=== PATIENT | female | born 1960 | race Caucasian/White ===

== ENCOUNTER 2023-05-12 15:15 | Outpatient (OUT) | payer MEDICARE, OTHER, SELFPAY ==
--- NOTE | 2023-05-12 15:33 | XR_ITS ---
[address] [address] Patient Name: ZAKI MOORE MRN: [id number] date: 1960 Sex: F Assigned Patient Location: [facility] Current Patient Location: [facility] Accession/Order Number: [id number] Exam Date: 05/12/2023 15:25 Report Date: 05/12/2023 16:36 At the request of: YUSRA STANFORD Procedure: XR DEXA axial skeleton EXAMINATION: XR DEXA axial skeleton, 05/12/2023 3:25 PM EDT HISTORY: Post Menopausal, Z78.0 COMPARISON: None. TECHNIQUE: Dual-energy X-ray absorptiometry (DEXA) bone density study performed for the axial skeleton. HISTORY: Post Menopausal, Z78.0 FINDINGS: Bone mineral density AP spine L2-L4 measures 1.142 g/sq cm. T score -0.5. WHO classification: Normal. Lowest bone mineral density left femoral neck measures 0.887 g/sq cm. T score -1.1. WHO classification: Osteopenia IMPRESSION: Borderline osteopenia. Moderate fracture risk Electronically authenticated by: KIRAN SNOWDEN Date: 05/12/2023 16:36
== END 2023-05-12 15:16 | disposition home or self-care (01) ==
LOC: RAD 15:15
DX: Z78.0 Asymptomatic menopausal state (principal); M85.80 Other specified disorders of bone density and structure, unspecified site
CPT/HCPCS: 77080

== ENCOUNTER 2023-08-08 08:53 | Outpatient (OUT) | payer MEDICARE, MEDICAID, SELFPAY ==
[2023-08-08 09:11] LABS: Estimated GFR (African America >60 (>=60); Estimated GFR (Non-African Ame >60 (>=60)
== END 2023-08-08 08:54 | disposition home or self-care (01) ==
LOC: LAB 08:53
PROVIDERS: Visit Provider Psychiatry & Neurology Neurology
DX: R27.0 Ataxia, unspecified (principal)
CPT/HCPCS: 36415; 82565; 84520

== ENCOUNTER 2023-09-08 12:55 | Outpatient (OUT) | payer SELFPAY | END 2023-09-08 12:55 | disposition home or self-care (01) | LOC: MRI 12:55 | PROVIDERS: Visit Provider Psychiatry & Neurology Neurology | DX: Z53.8 Procedure and treatment not carried out for other reasons (principal) ==

== ENCOUNTER 2023-12-07 16:53 | Emergency (ER) | payer MEDICARE, MEDICAID, SELFPAY ==
[2023-12-07 17:16] VITALS: BP 161/94; PULSE 89; RESP 18; TEMP 37.8; O2SAT 99; BMI 25.2
--- OUTSIDE RECORDS SUMMARY | 2023-12-07 17:19 | XMS_ITS | CCD ---
Author Name Unknown Address [address] [place] [address] Organization [facility] Care Team Providers Care Clay Carman Name Role Phone Zenia Wang Unavailable PAY ., DR AVERY Consulting Unavailable PAY ., DR AVERY Attending Unavailable PAY ., DR AVERY Admitting Unavailable MISC, DR BRAY Primary Care Unavailable MISC, DR BRAY Attending Unavailable MISC, DR BRAY Admitting Unavailable MISC, DR BRAY Primary Care Unavailable MISC, DR BRAY Consulting Unavailable ZIEBER, DR TUAN Jordan Consulting Unavailable DO Preet Mcdonnell Attending Provider NON STAFF Primary Care Provider Unavailabl e Preet Mcdonnell Admitting Unavailab Preet Merrill Attending Unavailab le NON STAFF Primary Care Unavailable NON STAFF Primary Care Unavailable Preet Mcdonnell Admitting Unavailab Preet Merrill Attending Unavailab Preet Merrill Admitting Unavailab Preet Merrill Attending Unavailab le NON STAFF Primary Care Unavailable Allergies Allergy Classification Reported Allergen(s) Allergy Type Date of Onset Reaction(s) Facility (3 sources) Latex Drug allergy 3 Blisters, Hives [facility] (1 source) Sertraline Drug Allergy hives [facility] Other (1 source) Bee Sting Drug allergy anaphylaxis [facility] Other (1 source) bee venom Drug allergy (disorder) [facility] Repository (1 source) Ketanserin Drug Allergy [facility] (1 source) Nystatin Drug Allergy [facility] (1 source) Soy protein Drug allergy (disorder) [facility] Repository (3 sources) Sulfonamides (Antibiotic); Translations: [Sulfa (Sulfonamide Antibiotics)] Allergy to substance 3 [facility] (1 source) Latex Drug allergy (disorder) [address] [place] [address] Repository Medications Current Medications Medication Drug Class(es) Dates Sig (Normalized) Sig (Original) aspirin 81 mg chewable tablet (2 sources) Platelet Aggregation Inhibitor, Nonsteroidal Anti-inflammatory Drug Start: 09-21-2023 take 1 tablet by mouth once daily Aspirin (Baby Aspirin) 81 mg Tablet,Chewable Active 81 MG PO Daily September 21, 2023 12:00am benazepril hydrochloride 20 mg / hydroCHLOROthiazide 12.5 mg oral tablet (3 sources) Thiazide Diuretic, Angiotensin Converting Enzyme Inhibitor Start: 09-21-2023 take 1 tablet by mouth once daily in the morning Benazepril-Hydr ochlorothiazide Active 1 TAB PO Every morning September 21, 2023 12:00am Benazepril-hydro CHLOROthiazide 20-12.5 MG Oral for 90 Days Active calcium carbonate 1500 mg / cholecalciferol 200 unt oral tablet (2 sources) Vitamin D Start: 09-21-2023 take 1 tablet by mouth once daily Calcium Carbonate-Vitamin D3 (Calcium + D) 600 mg-5 mcg (200 unit) Tablet Active 1 TAB PO Daily September 21, 2023 12:00am cholecalciferol 0.05 mg oral capsule (2 sources) Vitamin D Start: 09-21-2023 take 50 ug by mouth once daily Cholecalciferol (Vitamin D3) Active 50 MCG PO Daily September 21, 2023 12:00am Echinacea Purpurea Extract (2 sources) Start: 09-21-2023 take 1 tablet by mouth once daily at mealtime Echinacea Purpurea Extract (Echinacea) 125 mg Tablet Active 250 MG PO Daily September 21, 2023 12:00am administer with meals ergocalciferol 1.25 mg oral capsule (1 source) Provitamin D2 Compound Vitamin D (Ergocalciferol) 1.25 MG (95688 UT) Oral for 84 Days Active ibuprofen 200 mg oral tablet (2 sources) Nonsteroidal Anti-inflammatory Drug Start: 09-21-2023 take 400 mg by mouth every six hours Ibuprofen Active 400 MG PO Q6H September 21, 2023 12:00am minocycline 100 mg oral capsule (1 source) Tetracycline-clas s Drug Minocycline HCl 100 MG Oral for 30 Days Active omeprazole 20 mg delayed release oral capsule (3 sources) Proton Pump Inhibitor Start: 09-21-2023 take 20 mg by mouth once daily in the morning Omeprazole Active 20 MG PO Every morning September 21, 2023 12:00am Omeprazole 20 MG Oral for 30 Days Active triamcinolone acetonide 1 mg/ml topical cream (1 source) Corticosteroid Triamcinolone Acetonide 0.1 % External for 7 Days Active vitamin a 2.4 mg oral capsule (2 sources) Vitamin A Start: 09-21-2023 take 2400 ug by mouth once daily Vitamin A Active 2400 MCG PO Daily September 21, 2023 12:00am Problems Active Problems Problem Classification Problem Date Documented Da te Episodic/Chronic Conditions associated with dizziness or vertigo (4 sources) Dizziness and giddiness; Translations: [DIZZINESS AND GIDDINESS] Onset: 01-14-2023 Episodic Fluid and electrolyte disorders (1 source) Dehydration; Translations: [DEHYDRATION] Onset: 01-18-2023 Episodic Headache; including migraine (1 source) Tension-type headache, unspecified, not intractable; Translations: [TENSION-TYP HEADACHE UNS NOT INTRCT] Onset: 01-18-2023 Chronic Other nervous system disorders (1 source) Ataxia, unspecified; Translations: [Ataxia, unspecified] Onset: 10-10-2023 Episodic Other screening for suspected conditions (not mental disorders or infectious disease) (4 sources) Encounter for screening mammogram for malignant neoplasm of breast; Translations: [ENC SCR MAMMO MALIG NEOPLASM BREAST] Onset: 02-14-2023 Episodic Unclassified (1 source) CONTACT W/AND (SUSP) EXPOS COVID-19; Translations: [CONTACT W/AND (SUSP) EXPOS COVID-19] Onset: 01-18-2023 Past or Other Problems Problem Classification Problem Date Documented Da te Episodic/Chronic Nausea and vomiting (1 source) Nausea Onset: 06-09-2022 Resolved: 06-09-2022 Episodic Viral infection (1 source) COVID-19 Onset: 06-09-2022 Resolved: 06-09-2022 Results Test Name Value Interpretation Reference Range Facility Amphetamine Screen Ql (U)Ord ered By: Parviz Garcias on 10-10-2023 Amphetamines Ql (U) Negative Negative [facility] Barbiturates [Presence] in U rine by Screen methodOrdered By: Parviz Garcias on 10-10-2023 Barbiturates Screen Ql (U) Negative Negative [facility] Benzodiazepines Screen Ql (U )Ordered By: Parviz Garcias on 10-10-2023 Benzodiazepines Ql (U) Negative Negative [facility] Benzoylecgonine [Presence] i n Urine by Screen methodOrdered By: Parviz Garcias on 10-10-2023 Benzoylecgonine Screen Ql (U) Negative Negative [facility] Cannabinoids [Presence] in U rine by Screen methodOrdered By: Parviz Garcias on 10-10-2023 Cannabinoids Screen Ql (U) Positive Negative [facility] Comment on above: These are unconfirme d results and should not be used for legal purposes. Drug Cut-Off Concentration: AMPH 1000 ng/mL ADAN 200 ng/mL JAME 200 ng/mL COCM 300 ng/mL OP 300 ng/mL PCP 25 ng/mL THC 20 ng/mL Drug Screen,Urineon 10-10-20 Amphetamine Screen,Urine Negative Normal Negative [facility] Comment on above: Performed By: #### U RDS #### [facility] [address] [place] [address] [place] Barbiturate Screen,Urine Negative Normal Negative [facility] Comment on above: Performed By: #### U RDS #### [facility] [address] [place] [address] [place] Benzodiazepines Screen,Urine Negative Normal Negative [facility] Comment on above: Performed By: #### U RDS #### [facility] [address] [place] [address] [place] Cannabinoid Screen,Urine Positive High Negative [facility] Comment on above: Result Comment: Thes e are unconfirmed results and should not be used for legal purposes. Drug Cut-Off Concentration: AMPH 1000 ng/mL ADAN 200 ng/mL JAME 200 ng/mL COCM 300 ng/mL OP 300 ng/mL PCP 25 ng/mL THC 20 ng/mL PERFORMED BY: [place] [address] PATHOLOGIST HYDRO SPRAYER OPERATOR DAX MOMIN M.D. Performed By: #### U RDS #### [facility] [address] Cocaine Screen,Urine Negative Normal Negative [facility] Comment on above: Performed By: #### U RDS #### [facility] [address] Opiate Screen,Urine Negative Normal Negative [facility] Comment on above: Performed By: #### U RDS #### [facility] [address] Phencyclidine Screen,Urine Negative Normal Negative [facility] Comment on above: Performed By: #### U RDS #### [address] MR head/brain wo/w conon MR head/brain wo/w con [facility] [place] [address] [place] [address] MRI Report Signed Patient: Caridad Garcia MR#: [id number] 18 : 1960 Acct:[id number] Age/Sex: 63 / F ADM Date: 10/10/23 Loc: [place] Room: Type: [facility] Attending Dr: Preet Mcdonnell DO Copies to: Preet Mcdonnell DO Ordering Provider: Preet Mcdonnell DO Date of Service: 10/10/23 MR/MR head/brain wo/w con: R27.0 MRI the Brain with and without contrast TECHNIQUE: Multiplanar T1 and T2-weighted imaging of the brain. 13 cc of ProHance HISTORY: Headache for 2 years. COMPARISON: none VENTRICLES: Unremarkable BRAIN VOLUME: Adequate volume of brain parenchyma identified. BRAIN PARENCHYMAL SIGNAL INTENSITY: Scattered foci of increased T2/FLAIR signal intensity of the brain parenchyma is consistent with chronic small vessel ischemic changes. BLEED: None MASS EFFECT: No mass effect DIFFUSION RESTRICTION: None GRADIENT ECHO PARENCHYMAL SIGNAL LOSS: None MIDBRAIN: The midbrain structures are unremarkable. JAX: Unremarkable MEDULLA: Unremarkable INTERNAL AUDITORY CANALS: Unremarkable SINUSES: Unremarkable ORBITS: Grossly unremarkable MASTOIDS: Unremarkable ENHANCEMENT: No pathologic enhancement. MR/MR head/brain wo/w con IMPRESSION: No acute intracranial process. Findings suggests a mild chronic small vessel ischemic changes. Impression dictated by: Bennie Leahy M.D.10/10/2023 1:10 PM Dictation Location: [place] [address] Transcribed By: ADA 10/10/23 1310 Dictated By: Bennie Leahy DO 10/10/23 1301 Signed By: 10/10/23 1310 Normal [facility] Opiates [Presence] in Urine by Screen methodOrdered By: Parviz Garcias on 10-10-2023 Opiates Screen Ql (U) Negative Negative [facility] Phencyclidine Screen Ql (U)O rdered By: Parviz Garcias on 10-10-2023 Phencyclidine Ql (U) Negative Negative [facility] Creatinine (Bld) [Mass/Vol]O rdered By: Preet Mcdonnell on 09-12-2023 Creatinine [Mass/Vol] 0.7 mg/dL 0.6-1.3 [facility] Comment on above: ER/ESD physician is notified/shown all ISTAT results.Critical values may be confirmed by laboratory testing ifdeemed necessary by ER attending doctor. MG MAMM SCREEN 3D ROXANNE CADon 02-14-2023 MG MAMM SCREEN 3D ROXANNE CAD Patient: CARIDAD GARCIA Exam Date: 02/14/2023 : 1960 Gender:F Ordering : [facility] Admission #: [id number] Family : Order #: [id number] CLICK HERE TO VIEW EXAM RADIOLOGY REPORT PROCEDURE: MAMMOGRAM SCREENING 3D BILATERAL CAD COMPARISON: MG MAMM SCREEN ROXANNE W CAD, 04/25/2020. MG MAMM SCREEN ROXANNE W CAD, 04/13/2019. MG MAMM ROXANNE DIAG W CAD, 06/23/2021. US BREAST LEFT LIMITED, 06/23/2021. INDICATIONS: Screening mammography Calculator Name NCI Breast Cancer Risk Assessment Tool 5 Year Breast Cancer Risk 1.40% Lifetime Breast Cancer Risk 5.80% Personal Breast Cancer No Personal Ovarian Cancer No Treatments None Family Cancers None LOCATION: [facility] BREAST COMPOSITION: Heterogeneously dense,which may obscure small masses. FINDINGS: DIAGNOSTIC CATEGORY 2--BENIGN FINDING: RIGHT BREAST: No significant suspicious finding. Stable, chronic nodule within the anterior lower-outer quadrant. No significant change has occurred. LEFT BREAST: No significant suspicious finding. No significant change has occurred. RECOMMENDATIONS: ROUTINE MAMMOGRAM AND CLINICAL EVALUATION IN 12 MONTHS. PLEASE NOTE: A NORMAL MAMMOGRAM DOES NOT EXCLUDE THE POSSIBILITY OF BREAST CANCER. A CLINICALLY SUSPICIOUS PALPABLE LUMP SHOULD BE BIOPSIED. Dictated by: Tuan Nicole M.D. on 02/15/2023 at 08:07 Approved by: Tuan Nicole M.D. on 02/15/2023 at 08:18 Normal [facility] CBC AUTO DIFFon 01-14-2023 BASO # 0.1 103/ul Normal 0.0-0.1 [facility] Comment on above: Performed By: #### C BC #### [facility] [address] [place] [address] Dr. Cat Cotton Basophils/100 WBC (Bld) 0.7 % Normal 0.2-2.0 [facility] Comment on above: Performed By: #### C BC #### [facility] [address] [place] [address] Dr. Cat Cotton EO # 0.2 103/ul Normal 0.0-0.7 [facility] Comment on above: Performed By: #### C BC #### [facility] [address] [place] [address] Dr. Cat Cotton Eosinophils/100 WBC (Bld) 2.4 % Normal 0.9-7.0 [facility] Comment on above: Performed By: #### C BC #### [facility] [address] [place] [address] Dr. Cat Cotton Erythrocyte distribution width (RBC) [Ratio] 13.3 % Normal 11.0-15.0 [facility] Comment on above: Performed By: #### C BC #### [facility] [address] [place] [address] Dr. Cat Cotton Hematocrit (Bld) [Volume fraction] 40.1 % Normal 36.0-48.0 [facility] Comment on above: Performed By: #### C BC #### [facility] [address] [place] [address] Dr. Cat Cotton Hemoglobin (Bld) [Mass/Vol] 13.8 g/dL Normal 12.0-16.0 [facility] Comment on above: Performed By: #### C BC #### [facility] [address] [place] [address] Dr. Cat Cotton IG # 0.02 10e3/ul Normal 0.00-0.03 [facility] Comment on above: Performed By: #### C BC #### [facility] [address] [place] [address] Dr. Cat Cotton IG % 0.2 % Normal 0.0-0.5 [facility] Comment on above: Performed By: #### C BC #### [facility] [address] [place] [address] Dr. Cat Cotton LYMPH # 2.3 103/ul Normal 1.2-3.8 [facility] Comment on above: Performed By: #### C BC #### [facility] [address] [place] [address] Dr. Cat Cotton Lymphocytes/100 WBC (Bld) 28.9 % Normal 20.5-60.0 [facility] Comment on above: Performed By: #### C BC #### [facility] [address] [place] [address] Dr. Cat Cotton MANUAL DIFF REQ NO Normal [facility] Comment on above: Performed By: #### C BC #### [facility] [address] [place] [address] Dr. Cat Cotton MCH (RBC) [Entitic mass] 29.8 pg Normal 26.7-34.0 [facility] Comment on above: Performed By: #### C BC #### [facility] [address] [place] [address] Dr. Cat Cotton MCHC (RBC) [Mass/Vol] 34.4 g/dL Normal 29.9-35.2 [facility] Comment on above: Performed By: #### C BC #### [facility] [address] [place] [address] Dr. Cat Cotton MCV (RBC) [Entitic vol] 86.6 fL Normal 81.0-99.0 [facility] Comment on above: Performed By: #### C BC #### [facility] [address] [place] [address] Dr. Cat Cotton MONO # 0.6 103/ul Normal 0.3-0.8 [facility] Comment on above: Performed By: #### C BC #### [facility] [address] [place] [address] Dr. Cat Cotton Monocytes/100 WBC (Bld) 7.9 % Normal 1.7-12.0 [facility] Comment on above: Performed By: #### C BC #### [facility] [address] [place] [address] Dr. Cat Cotton NEUT # 4.8 103/ul Normal 1.4-6.5 [facility] Comment on above: Performed By: #### C BC #### [facility] [address] [place] [address] Dr. Cat Cotton Neutrophils/100 WBC (Bld) 59.9 % Normal 43.0-75.0 [facility] Comment on above: Performed By: #### C BC #### [facility] [address] [place] [address] Dr. Cat Cotton Platelet mean volume (Bld) [Entitic vol] 9.2 fL Critically low 9.5-13.5 [facility] Comment on above: Performed By: #### C BC #### [facility] [address] [place] [address] Dr. Cat Cotton PLT 229 103/ul Normal 150-450 [facility] Comment on above: Performed By: #### C BC #### [facility] [address] [place] [address] Dr. Cat Cotton RBC 4.63 106/ul Normal 4.20-5.40 [facility] Comment on above: Performed By: #### C BC #### [facility] [address] [place] [address] Dr. Cat Cotton WBC 8.0 103/ul Normal 4.0-11.0 [facility] Comment on above: Performed By: #### C BC #### [facility] [address] [place] [address] Dr. Cat Cotton Covid-19 PCR (CVDTB)on SARS-CoV-2 (COVID-19) RNA KRYSTA+probe Ql (Unsp spec) Not detected Normal NOT DETECTED [facility] Comment on above: Result Comment: When diagnostic testing is negative, the possibility of a false negative should be considered in the context of a patient's recent exposures and the presence of clinical signs and symptoms consistent with SARS-CoV-2. This test is not yet approved or cleared by the [place] FDA. When there are no FDA-approved or cleared tests available, and other criteria are met, FDA can make tests available under an emergency access mechanism called an Emergency Use Authorization (EUA). The EUA for this test is supported by the [employer] of Health and Human Service's declaration that circumstances exist to justify the emergency use of in vitro diagnostics for the detection and/or diagnosis of the virus that causes COVID-19. This EUA will remain in effect for the duration of the COVID-19 declaration justifying emergency of IVDs, unless it is terminated or revoked by the FDA (after which the test may no longer be used). Performed By: #### C VDTB #### [facility] [address] [place] [address] Dr. Cat Cotton INFLUENZA A [facility] B [facility]on [facility] BEL[facility] Normal [facility] Comment on above: Result Comment: Nega tive for Flu A protein angiten. Infection due to Flu A cannot be ruled out. Flu A angiten in the sample may be below the detection limit of the test. Performed By: #### I NFLUAB #### [facility] [address] [place] [address] Dr. Cat Cotton INFLUBNEG SEE BELOW Normal [facility] Comment on above: Result Comment: Nega tive for Flu B protein antigen. Infection due to Flu B cannot be ruled out. Flu B antigen in the sample may be below the detection limit of the test. Performed By: #### I NFLUAB #### [facility] [address] [place] [address] Dr. Cat Cotton INFLUENZA A AG Negative Normal NEGATIVE SEE COMMENT [facility] Comment on above: Performed By: #### I NFLUAB #### [facility] [address] [place] [address] Dr. Cat Cotton INFLUENZA B AG Negative Normal NEGATIVE SEE COMMENT [facility] Comment on above: Performed By: #### I NFLUAB #### [facility] [address] [place] [address] Dr. Cat Cotton LIPASEon 01-14-2023 Lipase [Catalytic activity/Vol] 144.0 U/L Normal 73.0-393.0 [facility] Comment on above: Performed By: #### B MP, HSTROPN, LIPA #### [facility] [address] [place] [address] Dr. Cat Cotton PROF CHEM 8 (BAS METB)on Anion gap [Moles/Vol] 12.1 mmol/L Normal [facility] Comment on above: Performed By: #### B MP, HSTROPN, LIPA #### [facility] [address] [place] [address] Dr. Cat Cotton Calcium [Mass/Vol] 9.2 mg/dL Normal 8.5-10.1 [facility] Comment on above: Performed By: #### B MP, HSTROPN, LIPA #### [facility] [address] [place] [address] Dr. Cat Cotton Chloride [Moles/Vol] 103 mmol/L Normal 98-107 [facility] Comment on above: Performed By: #### B MP, HSTROPN, LIPA #### [facility] [address] [place] [address] Dr. Cat Cotton CO2 [Moles/Vol] 28.3 mmol/L Normal 21.0-32.0 [facility] Comment on above: Performed By: #### B MP, HSTROPN, LIPA #### [facility] [address] [place] [address] Dr. Cat Cotton Creatinine [Mass/Vol] 0.70 mg/dL Normal 0.55-1.02 [facility] Comment on above: Performed By: #### B MP, HSTROPN, LIPA #### [facility] [address] [place] [address] [address] Cat Cotton EGFR-AF DJIBOUTIAN >60 Normal >=60 [facility] Comment on above: Performed By: #### B MP, HSTROPN, LIPA #### [facility] [address] [place] [address] [address] Cat Cotton EGFR-NON AF DJIBOUTIAN >60 Normal >=60 [facility] Comment on above: Performed By: #### B MP, HSTROPN, LIPA #### [facility] [address] [place] [address] [address] Cat Cotton Glucose [Mass/Vol] 91 mg/dL Normal 74-106 [facility] Comment on above: Performed By: #### B MP, HSTROPN, LIPA #### [facility] [address] [place] [address] Dr. Cat Cotton Potassium [Moles/Vol] 3.4 mmol/L Critically low 3.5-5.1 [facility] Comment on above: Performed By: #### B MP, HSTROPN, LIPA #### [facility] [address] [place] [address] [address] Cat Cotton Sodium [Moles/Vol] 140 mmol/L Normal 136-145 [facility] Comment on above: Performed By: #### B MP, HSTROPN, LIPA #### [facility] [address] [place] [address] [address] Cat Cotton Urea nitrogen [Mass/Vol] 8.0 mg/dL Normal 7.0-18.0 [facility] Comment on above: Performed By: #### B MP, HSTROPN, LIPA #### [facility] [address] [place] [address] Dr. Cat Cotton Urea nitrogen/Creatinine [Mass ratio] 11.4 mg/mg Normal [facility] Comment on above: Performed By: #### B MP, HSTROPN, LIPA #### [facility] [address] [place], [place] [address] Dr. Cat Cotton TROPONIN, HIGH SENSITIVITYon 01-14-2023 HSTROP <4.0 Normal 4.0-51.3 [facility] Comment on above: Result Comment: CUT- OFF POINTS HAVE BEEN ESTABLISHED BASED ON THE FOURTH UNIVERSAL DEFINITIONS OF MYOCARDIAL INFARCTION. THE UPPER REFERENCE LIMIT (URL) OF TROPONIN, DEFINED THE 99TH PERCENTILE OF cTnI DISTRIBUTION IN A REFERENCE POPULATION, HAS BEEN CONFIRMED THE DECISION THRESHOLD FOR MD DIAGNOSIS. Performed By: #### B MP, HSTROPN, LIPA #### [facility] [address] [place], [place] [address] Dr. Cat Cotton COVID Quick Testingon 2021 Result Positive [facility] Other Vital Signs Date Time Vital Sign Value Performing Clinician Faci lity 10-10-2023 11:17-0500 Diastolic blood pressure 67 mm[Hg] DO Christopher [employer] Work Phone: [facility] 10-10-2023 11:17-0500 Heart rate 57 /min DO Christopher [employer] Work Phone: [facility] 10-10-2023 11:17-0500 Respiratory rate 16 /min DO Christopher [employer] Work Phone: [facility] 10-10-2023 11:17-0500 SaO2% (BldA) [Mass fraction] 100 % DO Christopher [employer] Work Phone: [facility] 10-10-2023 11:17-0500 Systolic blood pressure 114 mm[Hg] DO Christopher [employer] Work Phone: [facility] 10-10-2023 10:42-0500 Inhaled oxygen flow rate 8 L/min DO Christopher Kecia Work Phone: [facility] 10-10-2023 09:53-0500 Body height 157.48 cm DO Christopher Kecia Work Phone: [facility] 10-10-2023 09:53-0500 Body mass index (BMI) [Ratio] 26.2 kg/m2 DO Christopher Kecia Work Phone: [facility] 10-10-2023 09:53-0500 Body weight 65 kg DO Christopher Kecia Work Phone: [facility] 10-10-2023 08:22-0500 Body temperature 97.9 [degF] DO Christopher Kecia Work Phone: [facility] 09-12-2023 08:43-0400 Body height 157.48 cm DO Christopher Kecia Work Phone: [facility] 09-12-2023 08:43-0400 Body weight 62.59 kg DO Christopher Kecia Work Phone: [facility] 06-09-2022 15:10-0400 Body height 157.48 cm Zenia Wang Other [facility] Other 06-09-2022 15:10-0400 Body mass index (BMI) [Ratio] 26.52 kg/m2 Zenia Wang Other [facility] Other 06-09-2022 15:10-0400 Body temperature 97.5 [degF] Zenia Wang Other [facility] Other 06-09-2022 15:10-0400 Body weight 65.77 kg Zenia Wang Other [facility] Other 06-09-2022 15:10-0400 Respiratory rate 18 /min Zenia Wang Other [facility] Other 06-09-2022 15:10-0400 SaO2% (BldA) [Mass fraction] 97 % Zenia Wang Other [facility] Other Encounters Encounter Date Encounter Type Care Provider Facility Start: 10-10-2023 End: 10-10-2023 Admission to same day surgery center DO Preet Mcdonnell Work Phone: [facility] [place] Start: 10-10-2023 End: 10-10-2023 ambulatory NON STAFF [facility] Work Phone: Start: 09-21-2023 End: 09-21-2023 ambulatory Preet Mcdonnell Facility:[facility] Start: 09-21-2023 End: 09-21-2023 ambulatory NON STAFF [facility] Work Phone: Start: 09-21-2023 End: 09-21-2023 Patient encounter procedure DO Preet Mcdonnell Work Phone: [facility] Work Phone: Start: 09-12-2023 End: 09-12-2023 ambulatory NON STAFF Facility:[facility] Start: 09-12-2023 End: 09-12-2023 Patient encounter procedure DO Preet Mcdonnell Work Phone: [facility] [place] Work Phone: Start: 02-14-2023 End: 02-15-[address] DOCTOR CUNNINGHAM Facility:[facility] Start: 01-14-2023 End: 01-14-[address] BENNIE KEE . Facility:[facility] Start: 06-09-2022 End: 06-09-2022 ambulatory Zenia Wang Other [facility] Other Start: 06-09-2022 Office outpatient ne w 20 minutes Zenia Wang [facility] Plan of Treatment Date Care Activity Detail Author Start: 10-10-2023 OR CAT/MRI W/ IV SEDATION (Not Applicable) OR CAT/MRI W/ IV SEDATION (Not Applicable) [facility] Start: 10-10-2023 End: 10-10-2023 [facility] Start: 10-10-2023 MR Unspecified body region [facility] Start: 10-10-2023 MRI of head MR head/brain wo/w con [facility] Patient Education MRI Scan Moder ate and Deep Sedation in Adults [facility] Work Phone: [facility] Payers Date Payer Category Payer Medicare [id number] 191 [id number] 2023 Self-pay 1961 Unknown [id number] 1960 Unknown [id number] 1960 Unknown [id number] [id number] Unknown [id number] 2.1 [id number] Unknown [id number] 2.16.8 [id number] Unknown [id number] 2.16.8 [id number] Unknown [id number] 2.16.8 [id number] Social History Date Type Detail Facility Sex Assigned At [facility] Other Start: 1960 Sex Assigned At Female F [facility] Start: 10-10-2023 [facility] Goals Date Patient Goal Desired Activity /State Evaluation note 06-09-2022 Note Date & Type Note Facility 06-09-2022 Evaluation note Encounter Date Diagnosis Assessment Notes May, Nausea (ICD-10 - R11.0) May, COVID-19 (ICD-10 - U07.1) Discharge Instructions for COVID-19 (Suspected or Confirmed ) material was printed Drink plenty fluids, get plenty of rest. You must quarantine for 5 days after the onset of your symptoms of COVID. Take Tylenol or Motrin for aches pains or fevers. Continue home medications as prescribed. Follow-up with your family physician if no improvement in 2 to 3 days. Call your family physician regarding further treatment if you are interested. [facility] Other Evaluation note Note Date & Type Note Facility Evaluation note No assessment information availa [facility] Work Phone: History general Narrative - Reported Note Date & Type Note Facility History general Narrative - Reported Type Medical History Hypertension Medical History tremors Medical History acid reflux Medical History skin cancers Surgical History cholecystectomy Hospitalization History see above [facility] Other Summary Purpose Family History No Family History Records Found Relationship Condition Age at Onset Recorded Date/T harley Not Specified Hypertension Unknown Cerebrovascular accident (CVA) Unknown father Diabetes mellitus Unknown Heart disease Unknown Myocardial infarction Unknown Hypertension Unknown sister Leiomyoma Unknown Lymphedema Unknown Prediabetes Unknown Advance Directives No Advanced Directives Records Found Advance Directive Response Recorded Date/ Time Advance Directives No August 19, 2023 8:46am Chief Complaint and Reason for Visit Chief Complaint r27.0 r27.0 Chief Complaint r27.0 r27.0 r27.0 Additional Source Comments REASON FOR VISIT (unrecogniz ed section and content) WHITE GRAN MARQUIE, N/V, DIZ ZINESS, H/A, COUGH, CONGESTION, LOOSE STOOL INFORMATION SOURCE (unrecogn ized section and content) DATE CREATED AUTHOR 02/19/2023 [facility] DATE CREATED AUTHOR AUTHOR'S ORGANIZ ATION 10/22/2023 [facility] Care Teams (unrecognized sec tion and content) Team Status: Active Member Role Status Dates NON STAFF Primary Care Provider Active Team Status: Inactive Member Role Status Dates NON STAFF Primary Care Provider Active Preet Mcdonnell DO Attending Provider Active Team Status: Inactive Member Role Status Dates Preet Mcdonnell DO Attending Provider Active NON STAFF Primary Care Provider Active Goals (unrecognized section and content) Goals may be documented in a n alternate section FOR RECORDS PERTAINING TO PATIENTS WHO ARE OR HAVE BEEN ENROLLED IN A CHEMICAL DEPENDENCY/SUBSTANCEABUSE PROGRAM, SOME INFORMATION MAY BE OMITTED. This clinical summary was aggregated from multiple sources. Caution should be exercised in using it in the provision of clinical care. This summary normalizes information from multiple sources, and as a consequence, information in this document may materially change the coding, format and clinical context of patient data. In addition, data may be omitted in some cases. CLINICAL DECISIONS SHOULD BE BASED ON THE PRIMARY CLINICAL RECORDS. [facility] [employer] [facility]. provides no warranty or guarantee of the accuracy or completeness of information in this document.
--- NOTE | 2023-12-07 17:21 | XR_ITS ---
The [address] [address] Patient Name: ZAKI MOORE MRN: [id number] date: 1960 Sex: F Assigned Patient Location: ER Current Patient Location: ER Accession/Order Number: [id number] Exam Date: 12/07/2023 17:46 Report Date: 12/07/2023 18:03 At the request of: NOMAN RUBIN Procedure: XR chest 2V EXAM: XR chest 2V HISTORY: Cough and chest tightness for 5 days. COMPARISON: 11/20/2012 TECHNIQUE: Upright PA and lateral chest x-ray FINDINGS: The heart is not enlarged and the vasculature is not distended. No acute infiltrate, effusion or pneumothorax is identified. The osseous structures are grossly intact. XR/XR chest 2V IMPRESSION: No acute infiltrate or evidence of cardiac decompensation. The overall appearance of the chest has not changed significantly. Electronically authenticated by: ALEXIA MUSTAFA Date: 12/07/2023 18:03
[2023-12-07 17:51] LABS: Influenza Virus A Antigen Negative; Influenza Virus B Antigen Negative; Internal Control Within Normal Limits
[2023-12-07 17:52] LABS: SARS-CoV-2 Ag POSITIVE (NEGATIVE)
--- NOTE | 2023-12-07 18:18 | ED_ITS ---
HPI - URI/Sore Throat General Chief Complaint: Upper Respiratory Infection Stated Complaint: URTI Time Seen by Provider: 12/07/23 17:21 Source: patient Limitations: no limitations History of Present Illness HPI Narrative: Patient is a 63-year-old female presents to the emergency department for the evaluation of headache, body aches, cough for the last 4 days. She has no sputum production. She has a history of asthma and does have an inhaler at home. No vomiting or diarrhea. She has some nasal congestion. No medications taken prior to arrival. She has no complaints of shortness of breath, hemoptysis, leroy chest pain. Related Data Previous Rx's Medication Instructions Recorded dexamethasone 4 mg tablet 4 mg PO BID 5 days #10 tabs 12/07/23 ondansetron 4 mg disintegrating 4 mg PO Q6H PRN nausea and 12/07/23 tablet vomiting #12 tabs Allergies Allergy/AdvReac Type Severity Reaction Status Date / Time beeswax Allergy Severe Verified 12/07/23 17:22 ciprofloxacin Allergy Verified 12/07/23 17:22 pseudoephedrine Allergy Verified 12/07/23 17:22 [From [facility]] Review of Systems ROS Constitutional Reports: malaise; Denies: fever or chills Ears, nose, mouth, and throat Reports: throat pain, nasal discharge and nasal congestion; Denies: ear pain Respiratory Reports: cough and chest congestion; Denies: shortness of breath, change in phlegm color or coughing up blood Gastrointestinal Denies: nausea or vomiting Integumentary/Breast Denies: rash PFSH PFS Social History Smoking status: Never smoker Exam Narrative Exam Narrative: Gen.: Awake, alert, in no distress Head: Normocephalic, atraumatic ENT: Moist mucous membranes, Bilateral TMs clear Respiratory: No respiratory distress, lungs clear bilaterally; Speaks in full sentences, no wheezing Cardio: Regular rate and rhythm Extremities: Moves extremities equally Psych: Normal mood and affect Neuro: No focal neuro deficit Skin: Warm, dry, intact Constitutional Vital Signs, click to edit/add: Last Vital Signs Temp 100.1 F 12/07/23 17:16 Pulse 89 12/07/23 17:16 Resp 18 12/07/23 17:16 BP 161/94 H 12/07/23 17:16 Pulse Ox 99 12/07/23 17:16 O2 Del Method Room Air 12/07/23 17:16 Course Vital Signs Vital signs: Vital Signs Temperature 100.1 F 12/07/23 17:16 Pulse Rate 89 12/07/23 17:16 Respiratory Rate 18 12/07/23 17:16 Blood Pressure 161/94 H 12/07/23 17:16 Pulse Oximetry 99 12/07/23 17:16 Oxygen Delivery Method Room Air 12/07/23 17:16 Temperature 100.1 F 12/07/23 17:16 Pulse Rate 89 12/07/23 17:16 Respiratory Rate 18 12/07/23 17:16 Blood Pressure 161/94 H 12/07/23 17:16 Pulse Oximetry 99 12/07/23 17:16 Oxygen Delivery Method Room Air 12/07/23 17:16 MDM - URI/Sore Throat MDM Narrative Medical decision making narrative: Patient is positive for COVID, chest x-ray is unremarkable and the patient is discharged home with dexamethasone and Zofran as needed. Follow-up PCP and return to the emergency department if symptoms change or worsen. She has normal oxygen saturation and respiration in the ER. She appears well-hydrated and nontoxic. She was given education and reassurance for home Medical Records Attestation: I reviewed the patient's medical records. Lab Data Attestation: I reviewed the patient's lab results. Labs: Lab Results 12/07/23 Range/Units 17:25 Influenza Type A Ag Negative Influenza Type B Ag Negative SARS-CoV-2 Ag (CV2AG) Positive A (NEGATIVE) Imaging Data Chest x-ray: Attestation: I have reviewed the pertinent imaging results. Radiologist's impression: ITS Impressions Chest X-Ray 12/07/23 17:21 IMPRESSION: No acute infiltrate or evidence of cardiac decompensation. The overall appearance of the chest has not changed significantly. Electronically authenticated by: ALEXIA MUSTAFA Date: 12/07/2023 18:03 Discharge Plan Discharge Chief Complaint: Upper Respiratory Infection Clinical Impression: COVID-19 Patient Disposition: Home, Self-Care Time of Disposition Decision: 18:16 Condition: Good Prescriptions / Home Meds: New dexamethasone 4 mg tablet 4 mg PO BID 5 Days Qty: 10 0RF ondansetron 4 mg tablet,disintegrating 4 mg PO Q6H PRN (Reason: nausea and vomiting) Qty: 12 0RF Instructions: COVID-19 (Coronavirus Disease 2019) (ED), How to Recover from COVID-19 at Home (ED) Stand Alone Forms: Portal Instructions Referrals: YUSRA STANFORD [Primary Care Provider] - 1 week
[2023-12-07] MEDS: DEXAMETHASONE SOD PHOS 10 MG/ML VIAL PO (18:24)
== END 2023-12-07 18:30 | disposition home or self-care (01) ==
PROVIDERS: Physician Assistant; Emergency Provider Emergency Medicine
DX: U07.1 COVID-19 (principal); J45.909 Unspecified asthma, uncomplicated
CPT/HCPCS: 71046; 87804; 87811; 99284; J1100

== ENCOUNTER 2024-03-28 12:51 | Outpatient (OUT) | payer MEDICARE, MEDICAID, SELFPAY ==
--- NOTE | 2024-03-28 13:00 | RT_ITS ---
The [facility] Test Date: 2024-03-28 Pat Name: ZAKI MOORE Department: Room: - Gender: Female Body Straightener: Nelida Doyle RRT : 1960 Requested By: [id number] Order Number: [id number] Reading MD: Kar Mahan Interpretive Statements Pulmonary function testing was completed according to ATS criteria. Patient refused to due multiple maneuvers due to claustrophobia and anxiety; plethysmography was unable to be completed. Both pre- and post-bronchodilator values utilized for spirometry. Spirometry (based on pre-bronchodilator values): -FEV1/FVC: Normal @ 77% -FEV1: Normal @ 82% -FVC: Normal @ 82% -There is no significant bronchodilator response. Diffusion capacity: -DLCO: Normal @ 103% when corrected for Hb 12.3g/dL Impressions: -Technically normal spirometry and diffusion capacity. Testing is non-diagnostic. If lung volumes are felt to be necessary, nitrogen washout method could be performed, but this is not available at [facility]. Clinical correlation required. Electronically Signed On 03-28-2024 16:33:18 EDT by Kar Mahan
--- OUTSIDE RECORDS SUMMARY | 2024-03-28 13:03 | XMS_ITS | CCD ---
Author Organization [facility] Care Team Providers Care Fisher Dip Net Name Role Phone Zenia Wang Unavailable PAY ., DR AVERY Consulting Unavailable PAY ., DR AVERY Attending Unavailable PAY ., DR AVERY Admitting Unavailable MISC, DR BRAY Primary Care Unavailable MISC, DR BRAY Attending Unavailable MISC, DR BRAY Admitting Unavailable MISC, DR BRAY Primary Care Unavailable MISC, DR BRAY Consulting Unavailable LISBETH, DR TUAN Jordan Consulting Unavailable Kecia, DO Preet Kelley Attending Provider NON STAFF Primary Care Provider Unavailabl e NON STAFF Primary Care Unavailable Preet Mcdonnell Admitting Unavailab Preet Merrill Attending Unavailab Preet Merrill Admitting Unavailab Preet Merrill Attending Unavailab le NON STAFF Primary Care Unavailable Preet Mcdonnell Admitting Unavailab Preet Merrill Attending Unavailab le NON STAFF Primary Care Unavailable Allergies Allergy Classification Reported Allergen(s) Allergy Type Date of Onset Reaction(s) Facility (3 sources) Latex Drug allergy 3 Blisters, [facility] (1 source) Sertraline Drug Allergy hives [facility] Other (1 source) Bee Sting Drug allergy anaphylaxis [facility] Other (1 source) bee venom Drug allergy (disorder) [facility] (1 source) Ketanserin Drug Allergy [facility] (1 source) Nystatin Drug Allergy [facility] (1 source) Soy protein Drug allergy (disorder) [facility] (3 sources) Sulfonamides (Antibiotic); Translations: [Sulfa (Sulfonamide Antibiotics)] Allergy to substance 3 Hives [facility] (1 source) Latex Drug allergy (disorder) 3 [facility] (1 source) Sertraline Drug Allergy 2 [facility] (1 source) bee venom protein (honey bee) Drug allergy (disorder) 2 [facility] Medications Current Medications Medication Drug Class(es) [...] D2 Compound Vitamin D (Ergocalciferol) 1.25 MG (34619 UT) Oral for 84 Days Active ibuprofen [...] UNS NOT INTRCT] Onset: 01-18-2023 Chronic Other screening for suspected conditions (not mental [...] source) Nausea Onset: 06-09-2022 Resolved: 06-09-2022 Episodic Other nervous system disorders (1 source) Ataxia, unspecified; Translations: [Ataxia, unspecified] Onset: 09-12-2023 Episodic Viral infection (1 source) COVID-19 Onset: 06-09-2022 Resolved: 06-09-2022 Results Test Name Value Interpretation Reference Range Facility Amphetamine Screen Ql (U)Ord ered By: Parviz Garcias on 10-10-2023 Amphetamines Ql (U) Negative Negative [facility] Barbiturates [Presence] in U rine by Screen methodOrdered By: Parviz Garcias on 10-10-2023 Barbiturates Screen Ql (U) Negative Negative [facility] Benzodiazepines Screen Ql (U )Ordered By: Parviz Garcias on 10-10-2023 Benzodiazepines Ql (U) Negative Negative [facility] Benzoylecgonine [Presence] i n Urine by Screen methodOrdered By: Parviz Garcias on 10-10-2023 Benzoylecgonine Screen Ql (U) Negative Negative [facility] Cannabinoids [Presence] in U rine by Screen methodOrdered By: Parviz Garcias on 10-10-2023 Cannabinoids Screen Ql (U) Positive Negative [facility] Comment on above: These are unconfirme d results and should not be used for legal purposes. Drug Cut-Off Concentration: AMPH 1000 ng/mL ADAN 200 ng/mL JAME 200 ng/mL COCM 300 ng/mL OP 300 ng/mL PCP 25 ng/mL THC 20 ng/mL Drug Screen,Urineon 10-10-20 Amphetamine Screen,Urine Negative Normal Negative [facility] Comment on above: Performed By: #### U RDS #### [facility] [address] [place] [address] Barbiturate Screen,Urine Negative Normal Negative [facility] Comment on above: Performed By: #### U RDS #### [facility] [address] [place] [address] [place] Benzodiazepines Screen,Urine Negative Normal Negative [facility] Comment on above: Performed By: #### U RDS #### [facility] [address] [place] [address] [place] Cannabinoid Screen,Urine Positive High Negative [facility] Comment on above: Result Comment: Thes e are unconfirmed results and should not be used for legal purposes. Drug Cut-Off Concentration: AMPH 1000 ng/mL ADAN 200 ng/mL JAME 200 ng/mL COCM 300 ng/mL OP 300 ng/mL PCP 25 ng/mL THC 20 ng/mL PERFORMED BY: [place] [address] PATHOLOGIST [employer] DAX MOMIN M.D. Performed By: #### U RDS #### [address] Cocaine Screen,Urine Negative Normal Negative [facility] Comment on above: Performed By: #### U RDS #### [facility] [address] [place] [address] Opiate Screen,Urine Negative Normal Negative [facility] Comment on above: Performed By: #### U RDS #### [address] Phencyclidine Screen,Urine Negative Normal Negative [facility] Comment on above: Performed By: #### U RDS #### [address] MR head/brain wo/w conon MR head/brain wo/w con [facility] [place] [address] [place] [address] MRI Report Signed Patient: Caridad Garcia MR#: [id number] 18 : 1960 Acct:[id number] Age/Sex: 63 / F ADM Date: 10/10/23 Loc: [place] Room: Type: [facility] Attending Dr: Preet Mcdonnell DO [...] Bennie Leahy M.D.10/10/2023 1:10 PM Dictation Location: [place] [address] Transcribed By: [facility] 10/10/23 1310 Dictated By: Bennie Leahy DO 10/10/23 1301 Signed By: 10/10/23 1310 Normal [facility] Opiates [Presence] in Urine by Screen methodOrdered By: Parviz Garcias on 10-10-2023 Opiates Screen Ql (U) Negative Negative [facility] Phencyclidine Screen Ql (U)O rdered By: Parviz Garcias on 10-10-2023 Phencyclidine Ql (U) Negative Negative [facility] Creatinine (Bld) [Mass/Vol]O rdered By: Preet Mcdonnell on 09-12-2023 Creatinine [Mass/Vol] 0.7 mg/dL 0.6-1.3 [facility] Comment on above: ER/ESD physician is notified/shown all ISTAT results.Critical values may be confirmed by laboratory testing ifdeemed necessary by ER attending doctor. MG MAMM SCREEN 3D ROXANNE CADon 02-14-2023 MG MAMM SCREEN 3D ROXANNE CAD Patient: CARIDAD GARCIA Exam Date: 02/14/2023 : 1960 Gender:F Ordering : [facility] Admission #: [id number] Family : Order #: [id number] CLICK HERE TO VIEW EXAM RADIOLOGY REPORT [...] Treatments None Family Cancers None LOCATION: [facility] BREAST COMPOSITION: Heterogeneously dense,which may obscure small [...] M.D. on 02/15/2023 at 08:18 Normal [facility] CBC AUTO DIFFon 01-14-2023 BASO # 0.1 103/ul Normal 0.0-0.1 [facility] Comment on above: Performed By: #### C BC #### [facility] [address] [place] [address] Dr. Cat Cotton Basophils/100 WBC (Bld) 0.7 % Normal 0.2-2.0 [facility] Comment on above: Performed By: #### C BC #### [facility] [address] [place] [address] Dr. Cat Cotton EO # 0.2 103/ul Normal 0.0-0.7 [facility] Comment on above: Performed By: #### C BC #### [facility] [address] [place] [address] Dr. Cat Cotton Eosinophils/100 WBC (Bld) 2.4 % Normal 0.9-7.0 [facility] Comment on above: Performed By: #### C BC #### [facility] [address] [place] [address] Dr. Cat Cotton Erythrocyte distribution width (RBC) [Ratio] 13.3 % Normal 11.0-15.0 [facility] Comment on above: Performed By: #### C BC #### [facility] [address] [place] [address] Dr. Cat Cotton Hematocrit (Bld) [Volume fraction] 40.1 % Normal 36.0-48.0 [facility] Comment on above: Performed By: #### C BC #### [facility] [address] [place] [address] Dr. Cat Cotton Hemoglobin (Bld) [Mass/Vol] 13.8 g/dL Normal 12.0-16.0 [facility] Comment on above: Performed By: #### C BC #### [facility] [address] [place] [address] Dr. Cat Cotton IG # 0.02 10e3/ul Normal 0.00-0.03 [facility] Comment on above: Performed By: #### C BC #### [facility] [address] [place] [address] Dr. Cat Cotton IG % 0.2 % Normal 0.0-0.5 [facility] Comment on above: Performed By: #### C BC #### [facility] [address] [place] [address] Dr. Cat Cotton LYMPH # 2.3 103/ul Normal 1.2-3.8 [facility] Comment on above: Performed By: #### C BC #### [facility] [address] [place] [address] Dr. Cat Cotton Lymphocytes/100 WBC (Bld) 28.9 % Normal 20.5-60.0 [facility] Comment on above: Performed By: #### C BC #### [facility] [address] [place] [address] Dr. Cat Cotton MANUAL DIFF REQ NO Normal [facility] Comment on above: Performed By: #### C BC #### [facility] [address] [place] [address] Dr. Cat Cotton MCH (RBC) [Entitic mass] 29.8 pg Normal 26.7-34.0 [facility] Comment on above: Performed By: #### C BC #### [facility] [address] [place] [address] Dr. Cat Cotton MCHC (RBC) [Mass/Vol] 34.4 g/dL Normal 29.9-35.2 [facility] Comment on above: Performed By: #### C BC #### [facility] [address] [place] [address] Dr. Cat Cotton MCV (RBC) [Entitic vol] 86.6 fL Normal 81.0-99.0 [facility] Comment on above: Performed By: #### C BC #### [facility] [address] [place] [address] Dr. Cat Cotton MONO # 0.6 103/ul Normal 0.3-0.8 [facility] Comment on above: Performed By: #### C BC #### [facility] [address] [place] [address] Dr. Cat Cotton Monocytes/100 WBC (Bld) 7.9 % Normal 1.7-12.0 [facility] Comment on above: Performed By: #### C BC #### [facility] [address] [place] [address] Dr. Cat Cotton NEUT # 4.8 103/ul Normal 1.4-6.5 [facility] Comment on above: Performed By: #### C BC #### [facility] [address] [place] [address] Dr. Cat Cotton Neutrophils/100 WBC (Bld) 59.9 % Normal 43.0-75.0 [facility] Comment on above: Performed By: #### C BC #### [facility] [address] [place] [address] Dr. Cat Cotton Platelet mean volume (Bld) [Entitic vol] 9.2 fL Critically low 9.5-13.5 [facility] Comment on above: Performed By: #### C BC #### [facility] [address] [place] [address] Dr. Cat Cotton PLT 229 103/ul Normal 150-450 [facility] Comment on above: Performed By: #### C BC #### [facility] [address] [place] [address] Dr. Cat Cotton RBC 4.63 106/ul Normal 4.20-5.40 [facility] Comment on above: Performed By: #### C BC #### [facility] [address] [place] [address] Dr. Cat Cotton WBC 8.0 103/ul Normal 4.0-11.0 [facility] Comment on above: Performed By: #### C BC #### [facility] [address] [place] [address] Dr. Cat Cotton Covid-19 PCR (CVDTB)on SARS-CoV-2 (COVID-19) RNA KRYSTA+probe Ql (Unsp spec) Not detected Normal NOT DETECTED [facility] Comment on above: Result Comment: When diagnostic [...] for this test is supported by the [place] of Health and Human Service's declaration that [...] used). Performed By: #### C VDTB #### [facility] [address] [place] [address] Dr. Cat Cotton INFLUENZA A AND B AGon 01-14 [facility] SEE BELOW Normal [facility] Comment on above: Result Comment: Nega tive for Flu A protein angiten. Infection due to Flu A cannot be ruled out. Flu A angiten in the sample may be below the detection limit of the test. Performed By: #### I NFLUAB #### [facility] [address] [place] [address] Dr. Cat Cotton INFLUBNEG SEE BELOW Normal [facility] Comment on above: Result Comment: Nega tive for Flu B protein antigen. Infection due to Flu B cannot be ruled out. Flu B antigen in the sample may be below the detection limit of the test. Performed By: #### I NFLUAB #### [facility] [address] [place] [address] Dr. Cat Cotton INFLUENZA A AG Negative Normal NEGATIVE SEE COMMENT [facility] Comment on above: Performed By: #### I NFLUAB #### [facility] [address] [place] [address] Dr. Cat Cotton INFLUENZA B AG Negative Normal NEGATIVE SEE COMMENT [facility] Comment on above: Performed By: #### I NFLUAB #### [facility] [address] [place] [address] Dr. Cat Cotton LIPASEon 01-14-2023 Lipase [Catalytic activity/Vol] 144.0 U/L Normal 73.0-393.0 [facility] Comment on above: Performed By: #### B MP, HSTROPN, LIPA #### [facility] [address] [place] [address] Dr. Cat Cotton PROF CHEM 8 (BAS METB)on Anion gap [Moles/Vol] 12.1 mmol/L Normal [facility] Comment on above: Performed By: #### B MP, HSTROPN, LIPA #### [facility] [address] [place] [address] Dr. Cat Cotton Calcium [Mass/Vol] 9.2 mg/dL Normal 8.5-10.1 [facility] Comment on above: Performed By: #### B MP, HSTROPN, LIPA #### [facility] [address] [place] [address] Dr. Cat Cotton Chloride [Moles/Vol] 103 mmol/L Normal 98-107 [facility] Comment on above: Performed By: #### B MP, HSTROPN, LIPA #### [facility] [address] [place] [address] Dr. Cat Cotton CO2 [Moles/Vol] 28.3 mmol/L Normal 21.0-32.0 [facility] Comment on above: Performed By: #### B MP, HSTROPN, LIPA #### [facility] [address] [place] [address] Dr. Cat Cotton Creatinine [Mass/Vol] 0.70 mg/dL Normal 0.55-1.02 [facility] Comment on above: Performed By: #### B ЕКАТЕРИНА, HSTROPN, LIPA #### [facility] [address] [place] [address] [address] Cat Cotton EGFR-AF BRUNEIAN >60 Normal >=60 [facility] Comment on above: Performed By: #### B MP, HSTROPN, LIPA #### [facility] [address] [place] [address] [address] Cat Cotton EGFR-NON AF BRUNEIAN >60 Normal >=60 [facility] Comment on above: Performed By: #### B ЕКАТЕРИНА, HSTROPN, LIPA #### [facility] [address] [place] [address] Dr. Cat Cotton Glucose [Mass/Vol] 91 mg/dL Normal 74-106 [facility] Comment on above: Performed By: #### B MP, HSTROPN, LIPA #### [facility] [address] [place] [address] Dr. Cat Cotton Potassium [Moles/Vol] 3.4 mmol/L Critically low 3.5-5.1 [facility] Comment on above: Performed By: #### B MP, HSTROPN, LIPA #### [facility] [address] [place] [address] [address] Cat Cotton Sodium [Moles/Vol] 140 mmol/L Normal 136-145 [facility] Comment on above: Performed By: #### B MP, HSTROPN, LIPA #### [facility] [address] [place] [address] [address] Cat Cotton Urea nitrogen [Mass/Vol] 8.0 mg/dL Normal 7.0-18.0 [facility] Comment on above: Performed By: #### B MP, HSTROPN, LIPA #### [facility] [address] [place] [address] [address] Cat Cotton Urea nitrogen/Creatinine [Mass ratio] 11.4 mg/mg Normal [facility] Comment on above: Performed By: #### B MP, HSTROPN, LIPA #### [facility] [address] [place], [place] [address] Dr. Cat Cotton TROPONIN, HIGH SENSITIVITYon 01-14-2023 HSTROP <4.0 Normal 4.0-51.3 [facility] Comment on above: Result Comment: CUT- OFF POINTS HAVE BEEN ESTABLISHED BASED ON THE FOURTH UNIVERSAL DEFINITIONS OF MYOCARDIAL INFARCTION. THE UPPER REFERENCE LIMIT (URL) OF TROPONIN, DEFINED THE 99TH PERCENTILE OF cTnI DISTRIBUTION IN A REFERENCE POPULATION, HAS BEEN CONFIRMED THE DECISION THRESHOLD FOR LA DIAGNOSIS. Performed By: #### B MP, HSTROPN, LIPA #### [facility] [address] [place], [place] [address] Dr. Cat Cotton COVID Quick Testingon 2021 Result Positive [employer] Other Vital Signs Date Time Vital Sign Value Performing Clinician Faci lity 10-10-2023 11:17-0500 Diastolic blood pressure 67 mm[Hg] DO Christopher Kecia Work Phone: [facility] 10-10-2023 11:17-0500 Heart rate 57 /min DO Christopher Kecia Work Phone: [facility] 10-10-2023 11:17-0500 Respiratory rate 16 /min DO Christopher Kecia Work Phone: [facility] 10-10-2023 11:17-0500 SaO2% (BldA) [Mass fraction] 100 % DO Christopher Kecia Work Phone: [facility] 10-10-2023 11:17-0500 Systolic blood pressure 114 mm[Hg] DO Christopher Kecia Work Phone: [facility] 10-10-2023 10:42-0500 Inhaled oxygen flow rate 8 L/min DO Christopher Kecia Work Phone: [facility] 10-10-2023 09:53-0500 Body height 157.48 cm DO Christopher Kecia Work Phone: [facility] 10-10-2023 09:53-0500 Body mass index (BMI) [Ratio] 26.2 kg/m2 DO Christopher Kecia Work Phone: [facility] 10-10-2023 09:53-0500 Body weight 65 kg DO Christopher Kecia Work Phone: [facility] 10-10-2023 08:22-0500 Body temperature 97.9 [degF] DO Christopher Kecia Work Phone: [facility] 09-12-2023 08:43-0400 Body height 157.48 cm DO Christopher Kecia Work Phone: [facility] 09-12-2023 08:43-0400 Body weight 62.59 kg DO Christopher Kecia Work Phone: [facility] 06-09-2022 15:10-0400 Body height 157.48 cm Zenia Wagn Other [employer] Other 06-09-2022 15:10-0400 Body mass index (BMI) [Ratio] 26.52 kg/m2 Zenia Wang Other [employer] Other 06-09-2022 15:10-0400 Body temperature 97.5 [degF] Zenia Wang Other [employer] Other 06-09-2022 15:10-0400 Body weight 65.77 kg Zenia Wang Other [employer] Other 06-09-2022 15:10-0400 Respiratory rate 18 /min Zenia Wang Other [employer] Other 06-09-2022 15:10-0400 SaO2% (BldA) [Mass fraction] 97 % Zenia Wang Other [employer] Other Encounters Encounter Date Encounter Type Care Provider Facility Start: 10-10-2023 End: 10-10-2023 Admission to same day surgery center DO Preet Mcdonnell Work Phone: [facility] [place] Start: 10-10-2023 End: 10-10-2023 ambulatory NON STAFF [facility] Work Phone: Start: 09-21-2023 End: 09-21-2023 ambulatory Nilosudhakar Mcdonnell Facility:[facility] Start: 09-21-2023 End: 09-21-2023 ambulatory NON STAFF [facility] Work Phone: Start: 09-21-2023 End: 09-21-2023 Patient encounter procedure DO Preet Mcdonnell Work Phone: [facility] Work Phone: Start: 09-12-2023 End: 09-12-2023 ambulatory NON STAFF Facility:[facility] Start: 09-12-2023 End: 09-12-2023 Patient encounter procedure DO Preet Mcdonnell Work Phone: [facility] [place] Work Phone: Start: 02-14-2023 End: 02-15-[address] DOCTOR CUNNINGHAM Facility:[facility] Start: 01-14-2023 End: 01-14-[address] BENNIE KEE . Facility:[facility] Start: 06-09-2022 End: 06-09-2022 ambulatory Zenia Wang Other [employer] Other Start: 06-09-2022 Office outpatient ne w 20 minutes Zenia Wang [facility] Plan of Treatment Date Care Activity Detail Author Start: 10-10-2023 OR CAT/MRI W/ IV SEDATION (Not Applicable) OR CAT/MRI W/ IV SEDATION (Not Applicable) [facility] Start: 10-10-2023 End: 10-10-2023 [facility] Start: 10-10-2023 MR Unspecified body region [facility] Start: 10-10-2023 MRI of head MR head/brain wo/w con [facility] Patient Education MRI Scan Moder ate and Deep Sedation [facility] Work Phone: [facility] Payers Date Payer Category Payer Medicare [id number] 2023 Self-pay 1961 Unknown [id number] 1960 Unknown [id number] 2.16.84 [id number] 1960 Unknown [id number] 2.16.84 [id number] Unknown [id number] 2.1 [id number] Unknown [id number] 2.16.8 [id number] Unknown [id number] 2.16.8 [id number] Unknown [id number] 2.16.8 [id number] Social History Date Type Detail Facility Sex Assigned At [employer] Other Start: 1960 Sex Assigned At Female F [facility] Start: 10-10-2023 [facility] Goals Date Patient Goal Desired Activity /State [...] regarding further treatment if you are interested. [employer] Other Evaluation note Note Date & Type Note Facility Evaluation note No assessment information availa [facility] Work Phone: History general Narrative - Reported Note Date & Type Note Facility History general Narrative - Reported Type Medical History Hypertension Medical History tremors Medical History acid reflux Medical History skin cancers Surgical History cholecystectomy Hospitalization History see above [employer] Other Summary Purpose Family History No Family [...] VISIT (unrecogniz ed section and content) WHITE LILIAN MARQUIE, N/V, DISol ZINESS, H/A, COUGH, CONGESTION, LOOSE STOOL INFORMATION SOURCE (unrecogn ized section and content) DATE CREATED AUTHOR 02/19/2023 [facility] DATE CREATED AUTHOR AUTHOR'S ORGANIZ ATION 12/23/2023 [facility] Care Teams (unrecognized sec tion and [...] BE BASED ON THE PRIMARY CLINICAL RECORDS. [facility] [facility]. provides no warranty or guarantee of the accuracy or completeness of information in this document.
[2024-03-28 13:15] LABS: Hemoglobin 12.3 g/dL (12.0-16.0)
[2024-03-28] MEDS: ALBUTEROL SULFATE 2.5 MG/3 ML VIAL NEB IH (13:42)
== END 2024-03-28 12:52 | disposition home or self-care (01) ==
LOC: CARD 12:52
DX: R06.02 Shortness of breath (principal)
CPT/HCPCS: 36415; 85018; 94060; 94729

== ENCOUNTER 2024-04-18 08:37 | Outpatient (OUT) | payer MEDICARE, MEDICAID, SELFPAY ==
--- OUTSIDE RECORDS SUMMARY | 2024-04-18 08:42 | XMS_ITS | CCD ---
Author Organization [facility] Providers Care Chipper Name Role Phone Zenia Wang Unavailable PAY [...] (3 sources) Latex Drug allergy 3 Blisters, [facility] (1 source) Sertraline Drug Allergy hives [facility] [employer] Other (1 source) Bee Sting Drug allergy anaphylaxis [facility] [employer] Other (1 source) bee venom Drug allergy (disorder) [facility] (1 source) Ketanserin Drug Allergy [facility] (1 source) Nystatin Drug Allergy [facility] (1 source) Soy protein Drug allergy (disorder) [facility] (3 sources) Sulfonamides (Antibiotic); Translations: [Sulfa (Sulfonamide Antibiotics)] Allergy to substance 3 Hives [facility] (1 source) Latex Drug allergy (disorder) 3 [facility] (1 source) Sertraline Drug Allergy 2 [facility] (1 source) bee venom protein (honey bee) Drug allergy (disorder) 2 [facility] Repository Medications Current Medications Medication Drug Class(es) [...] D2 Compound Vitamin D (Ergocalciferol) 1.25 MG (46931 UT) Oral for 84 Days Active ibuprofen [...] Episodic Viral infection (1 source) COVID-19 Onset: 07-27-2022 Resolved: 06-09-2022 Results Test Name Value Interpretation Reference Range Facility Amphetamine Screen Ql (U)Ord ered By: Parviz Garcias on 10-10-2023 Amphetamines Ql (U) Negative Negative [facility] Barbiturates [Presence] in U rine by Screen methodOrdered By: Parviz Garcias on 10-10-2023 Barbiturates Screen Ql (U) Negative Negative [facility] Benzodiazepines Screen Ql (U )Ordered By: Parviz Garcias on 10-10-2023 Benzodiazepines Ql (U) Negative Negative [facility] Benzoylecgonine [Presence] i n Urine by Screen methodOrdered By: Parviz Garcias on 10-10-2023 Benzoylecgonine Screen Ql (U) Negative Negative [facility] Cannabinoids [Presence] in U rine by Screen methodOrdered By: Parviz Garcias on 10-10-2023 Cannabinoids Screen Ql (U) Positive Negative [facility] Comment on above: These are unconfirme d results and should not be used for legal purposes. Drug Cut-Off Concentration: AMPH 1000 ng/mL ADAN 200 ng/mL JAEM 200 ng/mL COCM 300 ng/mL OP 300 ng/mL PCP 25 ng/mL THC 20 ng/mL Drug Screen,Urineon 10-10-20 Amphetamine Screen,Urine Negative Normal Negative [facility] Comment on above: Performed By: #### U RDS #### [address] Barbiturate Screen,Urine Negative Normal Negative [facility] Comment on above: Performed By: #### U RDS #### [facility] [address] [place] [address] [place] Benzodiazepines Screen,Urine Negative Normal Negative [facility] Comment on above: Performed By: #### U RDS #### [facility] [address] [place] [address] [place] Cannabinoid Screen,Urine Positive High Negative [facility] Comment on above: Result Comment: Thes e are unconfirmed results and should not be used for legal purposes. Drug Cut-Off Concentration: AMPH 1000 ng/mL ADAN 200 ng/mL JAME 200 ng/mL COCM 300 ng/mL OP 300 ng/mL PCP 25 ng/mL THC 20 ng/mL PERFORMED BY: [place] [id number] PATHOLOGIST ERGONOMICS CONSULTANT DAX MOMIN M.D. Performed By: #### U RDS #### [address] Cocaine Screen,Urine Negative Normal Negative [facility] Comment on above: Performed By: #### U RDS #### [address] Opiate Screen,Urine Negative Normal Negative [facility] Comment on above: Performed By: #### U RDS #### [address] Phencyclidine Screen,Urine Negative Normal Negative [facility] Comment on above: Performed By: #### U RDS #### [address] MR head/brain wo/w conon MR head/brain wo/w con [facility] [place] [address] [place] [address] MRI Report Signed Patient: Caridad Garcia MR#: [id number] 18 : 1960 Acct:[id number] Age/Sex: 63 / F ADM Date: 10/10/23 Loc: ID Room: Type: [facility] Attending Dr: Preet Mcdonnell DO [...] Bennie Leahy M.D.10/10/2023 1:10 PM Dictation Location: [place] [address] Transcribed By: [facility] 10/10/23 1310 Dictated By: Bennie Leahy DO 10/10/23 1301 Signed By: 10/10/23 1310 Normal [facility] Opiates [Presence] in Urine by Screen methodOrdered By: Parviz Garcias on 10-10-2023 Opiates Screen Ql (U) Negative Negative [facility] Phencyclidine Screen Ql (U)O rdered By: Parviz Garcias on 10-10-2023 Phencyclidine Ql (U) Negative Negative [facility] Creatinine (Bld) [Mass/Vol]O rdered By: Preet Mcdonnell on 09-12-2023 Creatinine [Mass/Vol] 0.7 mg/dL 0.6-1.3 [facility] Comment on above: ER/ESD physician is notified/shown all ISTAT results.Critical values may be confirmed by laboratory testing ifdeemed necessary by ER attending doctor. MG MAMM SCREEN 3D ROXANNE CADon 02-14-2023 MG MAMM SCREEN 3D ROXANNE CAD Patient: CARIDAD GARCIA Exam Date: 02/14/2023 : 1960 Gender:F Ordering : [facility] Admission #: [id number] Family : Order #: [id number] CLICK HERE TO VIEW EXAM RADIOLOGY REPORT [...] Treatments None Family Cancers None LOCATION: [facility] BREAST COMPOSITION: Heterogeneously dense,which may [...] M.D. on 02/15/2023 at 08:18 Normal [facility] CBC AUTO DIFFon 01-14-2023 BASO # 0.1 103/ul Normal 0.0-0.1 [facility] Comment on above: Performed By: #### C BC #### [facility] [address] [place] [address] Dr. Cat Cotton Basophils/100 WBC (Bld) 0.7 % Normal 0.2-2.0 [facility] Comment on above: Performed By: #### C BC #### [facility] [address] [place] [address] Dr. Cat Cotton EO # 0.2 103/ul Normal 0.0-0.7 [facility] Comment on above: Performed By: #### C BC #### [facility] [address] [place] [address] Dr. Cat Cotton Eosinophils/100 WBC (Bld) 2.4 % Normal 0.9-7.0 [facility] Comment on above: Performed By: #### C BC #### [facility] [address] [place] [address] Dr. Cat Cotton Erythrocyte distribution width (RBC) [Ratio] 13.3 % Normal 11.0-15.0 [facility] Comment on above: Performed By: #### C BC #### [facility] [address] [place] [address] Dr. Cat Cotton Hematocrit (Bld) [Volume fraction] 40.1 % Normal 36.0-48.0 [facility] Comment on above: Performed By: #### C BC #### [facility] [address] [place] [address] Dr. Cat Cotton Hemoglobin (Bld) [Mass/Vol] 13.8 g/dL Normal 12.0-16.0 [facility] Comment on above: Performed By: #### C BC #### [facility] [address] [place] [address] Dr. Cat Cotton IG # 0.02 10e3/ul Normal 0.00-0.03 [facility] Comment on above: Performed By: #### C BC #### [facility] [address] [place] [address] Dr. Cat Cotton IG % 0.2 % Normal 0.0-0.5 [facility] Comment on above: Performed By: #### C BC #### [facility] [address] [place] [address] Dr. Cat Cotton LYMPH # 2.3 103/ul Normal 1.2-3.8 [facility] Comment on above: Performed By: #### C BC #### [facility] [address] [place] [address] Dr. Cat Cotton Lymphocytes/100 WBC (Bld) 28.9 % Normal 20.5-60.0 [facility] Comment on above: Performed By: #### C BC #### [facility] [address] [place] [address] Dr. Cat Cotton MANUAL DIFF REQ NO Normal [facility] Comment on above: Performed By: #### C BC #### [facility] [address] [place] [address] Dr. Cat Cotton MCH (RBC) [Entitic mass] 29.8 pg Normal 26.7-34.0 [facility] Comment on above: Performed By: #### C BC #### [facility] [address] [place] [address] Dr. Cat Cotton MCHC (RBC) [Mass/Vol] 34.4 g/dL Normal 29.9-35.2 [facility] Comment on above: Performed By: #### C BC #### [facility] [address] [place] [address] Dr. Cat Cotton MCV (RBC) [Entitic vol] 86.6 fL Normal 81.0-99.0 [facility] Comment on above: Performed By: #### C BC #### [facility] [address] [place] [address] Dr. Cat Cotton MONO # 0.6 103/ul Normal 0.3-0.8 [facility] Comment on above: Performed By: #### C BC #### [facility] [address] [place] [address] Dr. Cat Cotton Monocytes/100 WBC (Bld) 7.9 % Normal 1.7-12.0 [facility] Comment on above: Performed By: #### C BC #### [facility] [address] [place] [address] Dr. Cat Cotton NEUT # 4.8 103/ul Normal 1.4-6.5 [facility] Comment on above: Performed By: #### C BC #### [facility] [address] [place] [address] Dr. Cat Cotton Neutrophils/100 WBC (Bld) 59.9 % Normal 43.0-75.0 [facility] Comment on above: Performed By: #### C BC #### [facility] [address] [place] [address] Dr. Cat Cotton Platelet mean volume (Bld) [Entitic vol] 9.2 fL Critically low 9.5-13.5 [facility] Comment on above: Performed By: #### C BC #### [facility] [address] [place] [address] Dr. Cat Cotton PLT 229 103/ul Normal 150-450 [facility] Comment on above: Performed By: #### C BC #### [facility] [address] [place] [address] Dr. Cat Cotton RBC 4.63 106/ul Normal 4.20-5.40 [facility] Comment on above: Performed By: #### C BC #### [facility] [address] [place] [address] Dr. Cat Cotton WBC 8.0 103/ul Normal 4.0-11.0 [facility] Comment on above: Performed By: #### C BC #### [facility] [address] [place] [address] Dr. Cat Cotton Covid-19 PCR (CVDTB)on SARS-CoV-2 (COVID-19) RNA KRYSTA+probe Ql (Unsp spec) Not detected Normal NOT DETECTED [facility] Comment on above: Result Comment: [...] for this test is supported by the [place] of Health and Human Service's declaration that [...] longer be used). Performed By: #### C VDTBH #### [facility] [address] [place] [address] Dr. Cat Cotton INFLUENZA A AND B AGon 01-[address] [facility] BELOW Normal [facility] Comment on above: Result Comment: Nega tive for Flu A protein angiten. Infection due to Flu A cannot be ruled out. Flu A angiten in the sample may be below the detection limit of the test. Performed By: #### I NFLUAB #### [facility] [address] [place] [address] Dr. Cat Cotton INFLUBNEG SEE BELOW Normal [facility] Comment on above: Result Comment: Nega tive for Flu B protein antigen. Infection due to Flu B cannot be ruled out. Flu B antigen in the sample may be below the detection limit of the test. Performed By: #### I NFLUAB #### [facility] [address] [place] [address] Dr. Cat Cotton INFLUENZA A AG Negative Normal NEGATIVE SEE COMMENT [facility] Comment on above: Performed By: #### I NFLUAB #### [facility] [address] [place] [address] Dr. Cat Cotton INFLUENZA B AG Negative Normal NEGATIVE SEE COMMENT [facility] Comment on above: Performed By: #### I NFLUAB #### [facility] [address] [place] [address] Dr. Cat Cotton LIPASEon 01-14-2023 Lipase [Catalytic activity/Vol] 144.0 U/L Normal 73.0-393.0 [facility] Comment on above: Performed By: #### B MP, HSTROPN, LIPA #### [facility] [address] [place] [address] Dr. Cat Cotton PROF CHEM 8 (BAS METB)on Anion gap [Moles/Vol] 12.1 mmol/L Normal [facility] Comment on above: Performed By: #### B MP, HSTROPN, LIPA #### [facility] [address] [place] [address] Dr. Cat Cotton Calcium [Mass/Vol] 9.2 mg/dL Normal 8.5-10.1 [facility] [place] [facility] Comment on above: Performed By: #### B MP, HSTROPN, LIPA #### [facility] [address] [place] [address] Dr. Cat Cotton Chloride [Moles/Vol] 103 mmol/L Normal 98-107 [facility] Comment on above: Performed By: #### B MP, HSTROPN, LIPA #### [facility] [address] [place] [address] Dr. Cat Cotton CO2 [Moles/Vol] 28.3 mmol/L Normal 21.0-32.0 [facility] Comment on above: Performed By: #### B MP, HSTROPN, LIPA #### [facility] [address] [place] [address] [address] Cat Cotton Creatinine [Mass/Vol] 0.70 mg/dL Normal 0.55-1.02 [facility] Comment on above: Performed By: #### B MP, HSTROPN, LIPA #### [facility] [address] [place] [address] [address] Cat Cotton EGFR-AF BAHAMIAN >60 Normal >=60 [facility] Comment on above: Performed By: #### B MP, HSTROPN, LIPA #### [facility] [address] [place] [address] [address] Cat Cotton EGFR-NON AF BAHAMIAN >60 Normal >=60 [facility] Comment on above: Performed By: #### B MP, HSTROPN, LIPA #### [facility] [address] [place] [address] [address] Cat Cotton Glucose [Mass/Vol] 91 mg/dL Normal 74-106 [facility] [place] Comment on above: Performed By: #### B MP, HSTROPN, LIPA #### [facility] [address] [place] [address] [address] Cat Cotton Potassium [Moles/Vol] 3.4 mmol/L Critically low 3.5-5.1 [facility] Comment on above: Performed By: #### B MP, HSTROPN, LIPA #### [facility] [address] [place] [address] [address] Cat Cotton Sodium [Moles/Vol] 140 mmol/L Normal 136-145 [facility] [place] Comment on above: Performed By: #### B MP, HSTROPN, LIPA #### [facility] [address] [place] [address] [address] Cat Cotton Urea nitrogen [Mass/Vol] 8.0 mg/dL Normal 7.0-18.0 [facility] Comment on above: Performed By: #### B MP, HSTROPN, LIPA #### [facility] [address] [place] [address] [address] Cat Cotton Urea nitrogen/Creatinine [Mass ratio] 11.4 mg/mg Normal [facility] Comment on above: Performed By: #### B MP, HSTROPN, LIPA #### [facility] [address] [place], [place] [address] Dr. Cat Cotton TROPONIN, HIGH SENSITIVITYon 01-14-2023 HSTROP <4.0 Normal 4.0-51.3 [facility] Comment on above: Result Comment: CUT- OFF POINTS HAVE BEEN ESTABLISHED BASED ON THE FOURTH UNIVERSAL DEFINITIONS OF MYOCARDIAL INFARCTION. THE UPPER REFERENCE LIMIT (URL) OF TROPONIN, DEFINED THE 99TH PERCENTILE OF cTnI DISTRIBUTION IN A REFERENCE POPULATION, HAS BEEN CONFIRMED THE DECISION THRESHOLD FOR HI DIAGNOSIS. Performed By: #### B MP, HSTROPN, LIPA #### [facility] [address] [place], [place] [address] Dr. Cat Cotton COVID Quick Testingon 2021 Result Positive [facility] Other Vital Signs Date Time Vital Sign Value Performing Clinician Faci nayelyy 10-10-2023 11:17-0500 Diastolic blood pressure 67 mm[Hg] DO Christopher Kecia Work Phone: [facility] 10-10-2023 11:17-0500 Heart rate 57 /min DO Christopher Kecia Work Phone: [facility] 10-10-2023 11:17-0500 Respiratory rate 16 /min DO Trendytaopher Kecia Work Phone: [facility] 10-10-2023 11:17-0500 SaO2% (BldA) [Mass fraction] 100 % DO Christopher Kecia Work Phone: [facility] 10-10-2023 11:17-0500 Systolic blood pressure 114 mm[Hg] DO Trendytaopher Kecia Work Phone: [facility] 10-10-2023 10:42-0500 Inhaled oxygen flow rate 8 L/min DO Trendytaopher [facility] Work Phone: [facility] 10-10-2023 09:53-0500 Body height 157.48 cm DO Christopher Kecia Work Phone: [facility] 10-10-2023 09:53-0500 Body mass index (BMI) [Ratio] 26.2 kg/m2 DO Preet Mcdonnell Work Phone: [facility] 10-10-2023 09:53-0500 Body weight 65 kg DO Preet Mcdonnell Work Phone: [facility] 10-10-2023 08:22-0500 Body temperature 97.9 [degF] DO Preet Mcdonnell Work Phone: [facility] 09-12-2023 08:43-0400 Body height 157.48 cm DO Preet Mcdonnell Work Phone: [facility] 09-12-2023 08:43-0400 Body weight 62.59 kg DO Preet Mcdonnell Work Phone: [facility] 06-09-2022 15:10-0400 Body height 157.48 cm Zenia Wang Other [facility] [employer] Other 06-09-2022 15:10-0400 Body mass index (BMI) [Ratio] 26.52 kg/m2 Zenia Wang Other [facility] Other 06-09-2022 15:10-0400 Body temperature 97.5 [degF] Zenia Wang Other [facility] Other 06-09-2022 15:10-0400 Body weight 65.77 kg Zenia Wang Other [facility] Other 06-09-2022 15:10-0400 Respiratory rate 18 /min Zenia Wang Other [facility] Other 06-09-2022 15:10-0400 SaO2% (BldA) [Mass fraction] 97 % Zenia Wang Other [facility] Other Encounters Encounter Date Encounter Type Care Provider Facility Start: 10-10-2023 End: 10-10-2023 Admission to same day surgery center DO Preet Mcdonnell Work Phone: [facility] [place] Start: 10-10-2023 End: 10-10-2023 ambulatory NON STAFF [facility] Work Phone: Start: 09-21-2023 End: 09-21-2023 ambulatory Preet Mcdonnell Facility:[facility] Start: 09-21-2023 End: 09-21-2023 ambulatory NON STAFF [facility] Work Phone: Start: 09-21-2023 End: 09-21-2023 Patient encounter procedure DO Preet Mcdonnell Work Phone: [facility] Work Phone: Start: 09-12-2023 End: 09-12-2023 ambulatory NON STAFF Facility:[facility] Start: 09-12-2023 End: 09-12-2023 Patient encounter procedure DO Preet Mcdonnell Work Phone: [facility] [place] Work Phone: Start: 02-14-2023 End: 02-15-[address] DOCTOR CUNNINGHAM Facility:[facility] Start: 01-14-2023 End: 01-14-[address] BENNIE KEE . Facility:[facility] Start: 06-09-2022 End: 06-09-2022 ambulatory Zenia Wang Other [facility] Other Start: 06-09-2022 Office outpatient ne w 20 minutes Zenia Wang [facility] Plan of Treatment Date Care Activity Detail Author Start: 10-10-2023 OR CAT/MRI W/ IV SEDATION (Not Applicable) OR CAT/MRI W/ IV SEDATION (Not Applicable) [facility] Start: 10-10-2023 End: 10-10-2023 [facility] Start: 10-10-2023 MR Unspecified body region [facility] Start: 10-10-2023 MRI of head MR head/brain wo/w con [facility] Patient Education MRI Scan Moder ate and Deep Sedation in Adults [facility] Work Phone: [facility] Payers Date Payer Category Payer Medicare [id number] 2023 Self-pay 1961 Unknown [id number] 1960 Unknown [id number] [id number] [id number] 1960 Unknown [id number] 2.16.84 [id number] Unknown [id number] 2.1 [id number] Unknown [id number] 2.16.8 [id number] Unknown [id number] 2.16.8 [id number] Unknown [id number] 2.16.8 [id number] Social History Date Type Detail Facility Sex Assigned At [facility] Other Start: 1960 Sex Assigned At Female F [facility] Start: 10-10-2023 Tobacco smoking stat us NDIS Ex-smoker (finding) [facility] Goals Date Patient Goal Desired Activity [...] regarding further treatment if you are interested. [facility] Other Evaluation note Note Date & Type Note Facility Evaluation note No assessment information availa [facility] Work Phone: History general Narrative - Reported Note Date & Type Note Facility History general Narrative - Reported Type Medical History Hypertension Medical History tremors Medical History acid reflux Medical History skin cancers Surgical History cholecystectomy Hospitalization History see above [facility] Other Summary Purpose Family History No Family [...] [facility] DATE CREATED AUTHOR 'S ORGANIZ ATION 12/23/2023 [facility] Care Teams (unrecognized sec tion and content) [...] BE BASED ON THE PRIMARY CLINICAL RECORDS. [employer] [facility]. provides no warranty or guarantee of the accuracy or completeness of information in this document.
--- NOTE | 2024-04-18 08:44 | CT_ITS ---
The [address] [address] Patient Name: ZAKI MOORE MRN: [id number] date: 1960 Sex: F Assigned Patient Location: CT Current Patient Location: CT Accession/Order Number: [id number] Exam Date: 04/18/2024 08:56 Report Date: 04/18/2024 09:42 At the request of: YUSRA STANFORD Procedure: CT sinus wo con EXAMINATION: CT sinus wo con HISTORY: Sinusitis J32.9 , chronic; congestion; fluid in right ear COMPARISON: No relevant comparison available. TECHNIQUE: Axial and Coronal CT images were created without and/or with IV contrast as indicated by examination type. Dose reduction techniques were achieved by using automated exposure control and/or adjustment of mA and/or kV according to patient size and/or use of iterative reconstruction technique. FINDINGS: MAXILLARY SINUSES: Trace amount of mucosal thickening within base of right maxillary sinus.. Infundibula are patent. No significant anomalous inferior orbital ethmoid (Raz) air cells. ETHMOID SINUSES: No significant mucosal thickening or fluid. Fovea ethmoidali and lamina papyracea are symmetric and intact. SPHENOID SINUSES: No significant mucosal thickening or fluid. Sphenoethmoidal recesses are patent. No bony dehiscence. FRONTAL SINUSES: No significant mucosal thickening or fluid. Frontal recesses are patent. NASAL FOSSA: 2 mm rightward deviation of the nasal septum. Mari bullosa of right middle turbinate. OTHER: Negative. Limited views of the skull base and orbits are unremarkable. CT/CT sinus wo con IMPRESSION: 1. Right maxillary minimal chronic sinusitis. The remaining paranasal sinuses are clear. 2. Limited inclusion of the right middle ear, but no appreciable fluid within visible portion. Electronically authenticated by: CHANO BOB Date: 04/18/2024 09:42
== END 2024-04-18 08:38 | disposition home or self-care (01) ==
LOC: CT 08:37
DX: J32.9 Chronic sinusitis, unspecified (principal)
CPT/HCPCS: 70486

== ENCOUNTER 2024-07-30 16:11 | Emergency (ER) | payer MEDICARE, MEDICAID, SELFPAY ==
[2024-07-30 16:16] VITALS: BP 140/70; PULSE 74; TEMP 36.6; O2SAT 98; BMI 24.9
--- NOTE | 2024-07-30 16:20 | ED_ITS ---
HPI HPI - General Adult General Chief complaint: Skin/Abscess/Foreign Body Stated complaint: Bee sting Time Seen by Provider: 07/30/24 16:16 Source: patient Mode of arrival: walk-in History of Present Illness HPI narrative: Patient is a 64-year-old female who presents to the emergency department for pain in the left posterior elbow where she was stung by bee just prior to arrival. She states that she was previously diagnosed with a bee sting allergy when she was stung in the lip and had significant swelling. She states she does not have an EpiPen currently. She did not take any medications prior to arriva l. She states she was stung in the left elbow, she has redness and pain to the area with mild swelling, she does not have any other associated facial swelling, lip swelling, tongue swelling or difficulty breathing. She does not have any other associated rash or itching. Related Data Home Medications ?Medication ?Instructions ?Recorded ?Confirmed benazepril 10 mg tablet 10 mg PO DAILY 07/30/24 07/30/24 omeprazole 10 mg capsule,delayed 10 mg PO DAILY 07/30/24 07/30/24 release Previous Rx's ?Medication ?Instructions ?Recorded hydroxyzine HCl 25 mg tablet 25 mg PO Q6H PRN itching #20 tabs 07/30/24 prednisone 20 mg tablet 40 mg (2 x 20 mg) PO DAILY 3 days 07/30/24 #6 tabs Allergies Allergy/AdvReac Type Severity Reaction Status Date / Time beeswax Allergy Severe Hives Verified 07/30/24 16:22 ciprofloxacin Allergy Hives Verified 07/30/24 16:22 pseudoephedrine Allergy Anaphylaxis Verified 07/30/24 16:22 [From [facility]] Opioid HPI Opioid Management Most Recent Opioid Data: No Data to Display Review of Systems ROS Constitutional Denies: fever or chills Ears, nose, mouth, and throat Denies: throat pain, throat swelling, swelling of lips/tongue or nasal congestion Respiratory Denies: shortness of breath Gastrointestinal Denies: nausea or vomiting Integumentary/Breast Reports: redness, skin pain and skin tenderness; Denies: rash Hematologic/Lymphatic Denies: easy bruising or easy bleeding PFSH PFSH Social History Smoking status: Never smoker Little interest or pleasure in doing things: not at all Feeling down, depressed, or hopeless: not at all Exam Narrative Exam Narrative: Gen.: Awake, alert, in no distress Head: Normocephalic, atraumatic ENT: Moist mucous membranes; clear speech with airway widely open and patent. No facial, tongue or lip swelling noted. Respiratory: No respiratory distress, lungs clear bilaterally no wheezing or stridor; Cardio: Regular rate and rhythm Extremities: Moves extremities equally Psych: Normal mood and affect Neuro: No focal neuro deficit Skin: Warm, dry, intact; insect sting noted to the left posterior elbow with mild edema and erythema. No evidence of retained stinger Constitutional Vital Signs, click to edit/add: Last Vital Signs Temp 98 F 07/30/24 16:16 Pulse 78 07/30/24 17:17 Resp 16 07/30/24 17:17 BP 145/85 H 07/30/24 17:17 Pulse Ox 99 07/30/24 17:17 O2 Del Method Room Air 07/30/24 17:17 Course Vital Signs Vital signs: Vital Signs Temperature 98 F 07/30/24 16:16 Pulse Rate 74 07/30/24 16:16 Respiratory Rate 18 07/30/24 16:16 Blood Pressure 140/70 07/30/24 16:16 Pulse Oximetry 98 07/30/24 16:16 Oxygen Delivery Method Room Air 07/30/24 16:16 Temperature 98 F 07/30/24 16:16 Pulse Rate 78 07/30/24 17:17 Respiratory Rate 16 07/30/24 17:17 Blood Pressure 145/85 H 07/30/24 17:17 Pulse Oximetry 99 07/30/24 17:17 Oxygen Delivery Method Room Air 07/30/24 17:17 Medical Decision Making [facility] Narrative Medical decision making narrative: No evidence of anaphylaxis at this time, patient with no diffuse or systemic reaction. She was treated with IV Benadryl, Solu-Medrol and Pepcid and on reevaluation after her medications were administered, the area of redness and swelling is gone. Patient treated for insect sting with antihistamines and steroids for the next several days. Follow-up with PCP and return to the ER if symptoms change or worsen. SUPERVISED APC VISIT, PHYSICIAN ATTESTATION: Based on the medical record the care appears appropriate. ? Medical Records Medical records reviewed: Yes I reviewed the patient's medical records Discharge Plan Discharge Chief Complaint: Skin/Abscess/Foreign Body Clinical Impression: Insect sting Patient Disposition: Home, Self-Care Time of Disposition Decision: 17:04 Condition: Good Mode of Transportation: Private Vehicle Prescriptions / Home Meds: New prednisone 20 mg tablet 40 mg PO DAILY 3 Days Qty: 6 0RF hydroxyzine HCl 25 mg tablet 25 mg PO Q6H PRN (Reason: itching) Qty: 20 0RF No Action benazepril 10 mg tablet 10 mg PO DAILY omeprazole 10 mg capsule,delayed release(DR/EC) 10 mg PO DAILY Print Language: [place] Instructions: Insect Bite or Sting (ED) Referrals: YUSRA STANFORD [Primary Care Provider] - 1 week Discharge Date/Time: 07/30/24 17:17
[2024-07-30] MEDS: DIPHENHYDRAMINE HCL 50 MG/ML VIAL 25 MG IV (16:28)
[2024-07-30] MEDS: 0.9 % SODIUM CHLORIDE 1,000 ML 1000 ML IV (16:28)
[2024-07-30] MEDS: FAMOTIDINE/PF 20 MG/2 ML VIAL IV (16:28)
[2024-07-30] MEDS: METHYLPREDNISOLONE SOD SUCC PF 125 MG/2 ML VIAL IVP (16:28)
[2024-07-30 17:04] VITALS: PULSE 62; O2SAT 99
--- OUTSIDE RECORDS SUMMARY | 2024-07-30 17:10 | XMS_ITS | CCD ---
Author Organization [facility] Care Team Providers Care Shank Skinner Name Role Phone Zenia Wang Unavailable PAY [...] (3 sources) Latex Drug allergy 3 Blisters, [facility] (1 source) Sertraline Drug Allergy hives [facility] Other (1 source) Bee Sting Drug allergy anaphylaxis [facility] Other (1 source) bee venom Drug allergy (disorder) [facility] (1 source) Ketanserin Drug Allergy [facility] (1 source) Nystatin Drug Allergy [facility] (1 source) Soy protein Drug allergy (disorder) [facility] (3 sources) Sulfonamides (Antibiotic); Translations: [Sulfa (Sulfonamide Antibiotics)] Allergy to substance 3 Hives [facility] (1 source) Latex Drug allergy (disorder) 3 [facility] (1 source) Sertraline Drug Allergy 2 [facility] (1 source) bee venom protein (honey bee) Drug allergy (disorder) 2 [facility] Medications Current Medications Medication Drug [...] D2 Compound Vitamin D (Ergocalciferol) 1.25 MG (67053 UT) Oral for 84 Days Active ibuprofen [...] on 10-10-2023 Amphetamines Ql (U) Negative Negative [facility] Barbiturates [Presence] in U rine by Screen methodOrdered By: Parviz Garcias on 10-10-2023 Barbiturates Screen Ql (U) Negative Negative [facility] Benzodiazepines Screen Ql (U )Ordered By: Parviz Garcias on 10-10-2023 Benzodiazepines Ql (U) Negative Negative [facility] Benzoylecgonine [Presence] i n Urine by Screen methodOrdered By: Parviz Garcias on 10-10-2023 Benzoylecgonine Screen Ql (U) Negative Negative [facility] Cannabinoids [Presence] in U rine by Screen methodOrdered By: Parviz Garcias on 10-10-2023 Cannabinoids Screen Ql (U) Positive Negative [facility] Comment on above: These are unconfirme d results and should not be used for legal purposes. Drug Cut-Off Concentration: AMPH 1000 ng/mL ADAN 200 ng/mL JAME 200 ng/mL COCM 300 ng/mL OP 300 ng/mL PCP 25 ng/mL THC 20 ng/mL Drug Screen,Urineon 10-10-20 Amphetamine Screen,Urine Negative Normal Negative [facility] Comment on above: Performed By: #### U RDS #### [address] Barbiturate Screen,Urine Negative Normal Negative [facility] Comment on above: Performed By: #### U RDS #### [facility] [address] [place] [address] [place] Benzodiazepines Screen,Urine Negative Normal Negative [facility] Comment on above: Performed By: #### U RDS #### [facility] [address] [place] [address] [place] Cannabinoid Screen,Urine Positive High Negative [facility] Comment on above: Result Comment: Thes e are unconfirmed results and should not be used for legal purposes. Drug Cut-Off Concentration: AMPH 1000 ng/mL ADAN 200 ng/mL JAME 200 ng/mL COCM 300 ng/mL OP 300 ng/mL PCP 25 ng/mL THC 20 ng/mL PERFORMED BY: [place] [address] PATHOLOGIST CROZE CUTTER DAX MOMIN M.D. Performed By: #### U RDS #### [address] Cocaine Screen,Urine Negative Normal Negative [facility] Comment on above: Performed By: #### U RDS #### [address] Opiate Screen,Urine Negative Normal Negative [facility] Comment on above: Performed By: #### U RDS #### [address] Phencyclidine Screen,Urine Negative Normal Negative [facility] Comment on above: Performed By: #### U RDS #### [address] MR head/brain wo/w conon MR head/brain wo/w con [facility] [place] [address] [place] [address] MRI Report Signed Patient: Caridad Garcia MR#: [id number] 18 : 1960 Acct:[id number] Age/Sex: 63 / F ADM Date: 10/10/23 Loc: PA Room: Type: [facility] Attending Dr: Preet Mcdonnell DO Copies to: [...] Bennie Leahy M.D.10/10/2023 1:10 PM Dictation Location: [place] [address] Transcribed By: [facility] 10/10/23 1310 Dictated By: Bennie Leahy DO 10/10/23 1301 Signed By: 10/10/23 1310 Normal [facility] Opiates [Presence] in Urine by Screen methodOrdered By: Parviz Garcias on 10-10-2023 Opiates Screen Ql (U) Negative Negative [facility] Phencyclidine Screen Ql (U)O rdered By: Parviz Garcias on 10-10-2023 Phencyclidine Ql (U) Negative Negative [facility] Creatinine (Bld) [Mass/Vol]O rdered By: Preet Mcdonnell on 09-12-2023 Creatinine [Mass/Vol] 0.7 mg/dL 0.6-1.3 [facility] Comment on above: ER/ESD physician is notified/shown all ISTAT results.Critical values may be confirmed by laboratory testing ifdeemed necessary by ER attending doctor. MG MAMM SCREEN 3D ROXANNE CADon 02-14-2023 MG MAMM SCREEN 3D ROXANNE CAD Patient: CARIDAD GARCIA Exam Date: 02/14/2023 : 1960 Gender:F Ordering : M[facility]. MYRNA POSEY [facility] Admission #: [id number] Family : Order #: [id number] CLICK HERE TO VIEW EXAM RADIOLOGY REPORT [...] Treatments None Family Cancers None LOCATION: [facility] BREAST COMPOSITION: Heterogeneously dense,which may obscure [...] M.D. on 02/15/2023 at 08:18 Normal [facility] CBC AUTO DIFFon 01-14-2023 BASO # 0.1 103/ul Normal 0.0-0.1 [facility] Comment on above: Performed By: #### C BC #### [facility] [address] [place] [address] Dr. Cat Cotton Basophils/100 WBC (Bld) 0.7 % Normal 0.2-2.0 [facility] Comment on above: Performed By: #### C BC #### [facility] [address] [place] [address] Dr. Cat Cotton EO # 0.2 103/ul Normal 0.0-0.7 [facility] Comment on above: Performed By: #### C BC #### [facility] [address] [place] [address] Dr. Cat Cotton Eosinophils/100 WBC (Bld) 2.4 % Normal 0.9-7.0 [facility] Comment on above: Performed By: #### C BC #### [facility] [address] [place] [address] Dr. Cat Cotton Erythrocyte distribution width (RBC) [Ratio] 13.3 % Normal 11.0-15.0 [facility] Comment on above: Performed By: #### C BC #### [facility] [address] [place] [address] Dr. Cat Cotton Hematocrit (Bld) [Volume fraction] 40.1 % Normal 36.0-48.0 [facility] Comment on above: Performed By: #### C BC #### [facility] [address] [place] [address] Dr. Cat Cotton Hemoglobin (Bld) [Mass/Vol] 13.8 g/dL Normal 12.0-16.0 [facility] Comment on above: Performed By: #### C BC #### [facility] [address] [place] [address] Dr. Cat Cotton IG # 0.02 10e3/ul Normal 0.00-0.03 [facility] Comment on above: Performed By: #### C BC #### [facility] [address] [place] [address] Dr. Cat Cotton IG % 0.2 % Normal 0.0-0.5 [facility] Comment on above: Performed By: #### C BC #### [facility] [address] [place] [address] Dr. Cat Cotton LYMPH # 2.3 103/ul Normal 1.2-3.8 [facility] Comment on above: Performed By: #### C BC #### [facility] [address] [place] [address] Dr. Cat Cotton Lymphocytes/100 WBC (Bld) 28.9 % Normal 20.5-60.0 [facility] Comment on above: Performed By: #### C BC #### [facility] [address] [place] [address] Dr. Cat Cotton MANUAL DIFF REQ NO Normal [facility] Comment on above: Performed By: #### C BC #### [facility] [address] [place] [address] Dr. Cat Cotton MCH (RBC) [Entitic mass] 29.8 pg Normal 26.7-34.0 [facility] Comment on above: Performed By: #### C BC #### [facility] [address] [place] [address] Dr. Cat Cotton MCHC (RBC) [Mass/Vol] 34.4 g/dL Normal 29.9-35.2 [facility] Comment on above: Performed By: #### C BC #### [facility] [address] [place] [address] Dr. Cat Cotton MCV (RBC) [Entitic vol] 86.6 fL Normal 81.0-99.0 [facility] Comment on above: Performed By: #### C BC #### [facility] [address] [place] [address] Dr. Cat Cotton MONO # 0.6 103/ul Normal 0.3-0.8 [facility] Comment on above: Performed By: #### C BC #### [facility] [address] [place] [address] Dr. Cat Cotton Monocytes/100 WBC (Bld) 7.9 % Normal 1.7-12.0 [facility] Comment on above: Performed By: #### C BC #### [facility] [address] [place] [address] Dr. Cat Cotton NEUT # 4.8 103/ul Normal 1.4-6.5 [facility] Comment on above: Performed By: #### C BC #### [facility] [address] [place] [address] Dr. Cat Cotton Neutrophils/100 WBC (Bld) 59.9 % Normal 43.0-75.0 [facility] Comment on above: Performed By: #### C BC #### [facility] [address] [place] [address] Dr. Cat Cotton Platelet mean volume (Bld) [Entitic vol] 9.2 fL Critically low 9.5-13.5 [facility] Comment on above: Performed By: #### C BC #### [facility] [address] [place] [address] Dr. Cat Cotton PLT 229 103/ul Normal 150-450 [facility] Comment on above: Performed By: #### C BC #### [facility] [address] [place] [address] Dr. Cat Cotton RBC 4.63 106/ul Normal 4.20-5.40 [facility] Comment on above: Performed By: #### C BC #### [facility] [address] [place] [address] Dr. Cat Cotton WBC 8.0 103/ul Normal 4.0-11.0 [facility] Comment on above: Performed By: #### C BC #### [facility] [address] [place] [address] Dr. Cat Cotton Covid-19 PCR (CVDTB)on SARS-CoV-2 (COVID-19) RNA KRYSTA+probe Ql (Unsp spec) Not detected Normal NOT DETECTED [facility] Comment on above: Result Comment: When [...] for this test is supported by the [place] of Health and Human Service's declaration that [...] used). Performed By: #### C VDTB #### [facility] [address] [place] [address] Dr. Cat Cotton INFLUENZA A AND B AGon 01-[facility] BEL[facility] Normal [facility] Comment on above: Result Comment: Nega tive for Flu A protein angiten. Infection due to Flu A cannot be ruled out. Flu A angiten in the sample may be below the detection limit of the test. Performed By: #### I NFLUAB #### [facility] [address] [place] [address] Dr. Cat Cotton INFLUBNEG SEE BELOW Normal [facility] Comment on above: Result Comment: Nega tive for Flu B protein antigen. Infection due to Flu B cannot be ruled out. Flu B antigen in the sample may be below the detection limit of the test. Performed By: #### I NFLUAB #### [facility] [address] [place] [address] Dr. Cat Cotton INFLUENZA A AG Negative Normal NEGATIVE SEE COMMENT [facility] Comment on above: Performed By: #### I NFLUAB #### [facility] [address] [place] [address] Dr. Cat Cotton INFLUENZA B AG Negative Normal NEGATIVE SEE COMMENT [facility] Comment on above: Performed By: #### I NFLUAB #### [facility] [address] [place] [address] Dr. Cat Cotton LIPASEon 01-14-2023 Lipase [Catalytic activity/Vol] 144.0 U/L Normal 73.0-393.0 [facility] Comment on above: Performed By: #### B MP, HSTROPN, LIPA #### [facility] [address] [place] [address] Dr. Cat Cotton PROF CHEM 8 (BAS METB)on Anion gap [Moles/Vol] 12.1 mmol/L Normal [facility] Comment on above: Performed By: #### B MP, HSTROPN, LIPA #### [facility] [address] [place] [address] Dr. Cat Cotton Calcium [Mass/Vol] 9.2 mg/dL Normal 8.5-10.1 [facility] Comment on above: Performed By: #### B MP, HSTROPN, LIPA #### [facility] [address] [place] [address] Dr. Cat Cotton Chloride [Moles/Vol] 103 mmol/L Normal 98-107 [facility] Comment on above: Performed By: #### B MP, HSTROPN, LIPA #### [facility] [address] [place] [address] Dr. Cat Cotton CO2 [Moles/Vol] 28.3 mmol/L Normal 21.0-32.0 [facility] Comment on above: Performed By: #### B MP, HSTROPN, LIPA #### [facility] [address] [place], [place] [id number] Dr. Cat Cotton Creatinine [Mass/Vol] 0.70 mg/dL Normal 0.55-1.02 [facility] Comment on above: Performed By: #### B MP, HSTROPN, LIPA #### [facility] [address] [place] [address] [address] Cat Cotton EGFR-AF [place] >60 Normal >=60 [facility] Comment on above: Performed By: #### B MP, HSTROPN, LIPA #### [facility] [address] [place] [address] [address] Cat Cotton EGFR-NON AF [place] >60 Normal >=60 [facility] Comment on above: Performed By: #### B MP, HSTROPN, LIPA #### [facility] [address] [place] [address] [address] Cat Cotton Glucose [Mass/Vol] 91 mg/dL Normal 74-106 [facility] Comment on above: Performed By: #### B MP, HSTROPN, LIPA #### [facility] [address] [place] [address] [address] Cat Cotton Potassium [Moles/Vol] 3.4 mmol/L Critically low 3.5-5.1 [facility] Comment on above: Performed By: #### B MP, HSTROPN, LIPA #### [facility] [address] [place] [address] [address] Cat Cotton Sodium [Moles/Vol] 140 mmol/L Normal 136-145 [facility] Comment on above: Performed By: #### B MP, HSTROPN, LIPA #### [facility] [address] [place] [address] [address] Cat Cotton Urea nitrogen [Mass/Vol] 8.0 mg/dL Normal 7.0-18.0 [facility] Comment on above: Performed By: #### B MP, HSTROPN, LIPA #### [facility] [address] [place] [address] [address] Cat Cotton Urea nitrogen/Creatinine [Mass ratio] 11.4 mg/mg Normal [facility] Comment on above: Performed By: #### B MP, HSTROPN, LIPA #### [facility] [address] [place], [place] [address] Dr. Cat Cotton TROPONIN, HIGH SENSITIVITYon 01-14-2023 HSTROP <4.0 Normal 4.0-51.3 [facility] Comment on above: Result Comment: CUT- OFF POINTS HAVE BEEN ESTABLISHED BASED ON THE FOURTH UNIVERSAL DEFINITIONS OF MYOCARDIAL INFARCTION. THE UPPER REFERENCE LIMIT (URL) OF TROPONIN, DEFINED THE 99TH PERCENTILE OF cTnI DISTRIBUTION IN A REFERENCE POPULATION, HAS BEEN CONFIRMED THE DECISION THRESHOLD FOR PR DIAGNOSIS. Performed By: #### B MP, HSTROPN, LIPA #### [facility] [address] [place], [place] [address] Dr. Cat Cotton COVID Quick Testingon 2021 Result Positive [employer] Other Vital Signs Date Time Vital Sign Value Performing Clinician Faci nayelyy 10-10-2023 11:17-0500 Diastolic blood pressure 67 mm[Hg] DO Christopher Kecia Work Phone: [facility] 10-10-2023 11:17-0500 Heart rate 57 /min DO Christopher Kecia Work Phone: [facility] 10-10-2023 11:17-0500 Respiratory rate 16 /min DO Christopher Kecia Work Phone: [facility] 10-10-2023 11:17-0500 SaO2% (BldA) [Mass fraction] 100 % DO Christopher Kecia Work Phone: [facility] 10-10-2023 11:17-0500 Systolic blood pressure 114 mm[Hg] DO Christopher Kecia Work Phone: [facility] 10-10-2023 10:42-0500 Inhaled oxygen flow rate 8 L/min DO Intell[employer]opher [employer] Work Phone: [facility] 10-10-2023 09:53-0500 Body height 157.48 cm DO Christopher Kecia Work Phone: [facility] 10-10-2023 09:53-0500 Body mass index (BMI) [Ratio] 26.2 kg/m2 DO Preet Mcdonnell Work Phone: [facility] 10-10-2023 09:53-0500 Body weight 65 kg DO Preet Mcdonnell Work Phone: [facility] 10-10-2023 08:22-0500 Body temperature 97.9 [degF] DO Preet Mcdonnell Work Phone: [facility] 09-12-2023 08:43-0400 Body height 157.48 cm DO Preet Mcdonnell Work Phone: [facility] 09-12-2023 08:43-0400 Body weight 62.59 kg DO Preet Mcdonnell Work Phone: [facility] 06-09-2022 15:10-0400 Body height 157.48 cm Zenia Wang Other [employer] [facility] Other 06-09-2022 15:10-0400 Body mass index (BMI) [Ratio] 26.52 kg/m2 Zenia Wang Other [employer] Other 06-09-2022 15:10-0400 Body temperature 97.5 [degF] Zenia Wang Other [employer] Other 06-09-2022 15:10-0400 Body weight 65.77 kg Zenia Kathleen Other [employer] Other 06-09-2022 15:10-0400 Respiratory rate 18 /min Zenia Wang Other [employer] Other 06-09-2022 15:10-0400 SaO2% (BldA) [Mass fraction] 97 % Zenia Wang Other [employer] Other Encounters Encounter Date Encounter Type Care Provider Facility Start: 10-10-2023 End: 10-10-2023 Admission to same day surgery center DO Preet Mcdonnell Work Phone: [facility] [place] Start: 10-10-2023 End: 10-10-2023 ambulatory NON STAFF [facility] Work Phone: Start: 09-21-2023 End: 09-21-2023 ambulatory Preet Mcdonnell Facility:[facility] Start: 09-21-2023 End: 09-21-2023 ambulatory NON STAFF [facility] Work Phone: Start: 09-21-2023 End: 09-21-2023 Patient encounter procedure DO Preet Mcdonnell Work Phone: [facility] Work Phone: Start: 09-12-2023 End: 09-12-2023 ambulatory NON STAFF Facility:[facility] Start: 09-12-2023 End: 09-12-2023 Patient encounter procedure DO Preet Mcdonnell Work Phone: [facility] [place] Work Phone: Start: 02-14-2023 End: 02-15-[address] DOCTOR CUNNINGHAM Facility:[facility] Start: 01-14-2023 End: 01-14-[address] BENNIE KEE . Facility:[facility] Start: 06-09-2022 End: 06-09-2022 ambulatory Zenia Wang Other [employer] Other Start: 06-09-2022 Office outpatient ne w 20 minutes Zenia Wang [facility] Plan of Treatment Date Care Activity Detail Author Start: 10-10-2023 OR CAT/MRI W/ IV SEDATION (Not Applicable) OR CAT/MRI W/ IV SEDATION (Not Applicable) [facility] Start: 10-10-2023 End: 10-10-2023 [facility] Start: 10-10-2023 MR Unspecified body region [facility] Start: 10-10-2023 MRI of head MR head/brain wo/w con [facility] Patient Education MRI Scan Moder ate and Deep Sedation in Adults [facility] Work Phone: [facility] Payers Date Payer Category Payer Medicare [id number] 2023 Self-pay 1961 Unknown [id number] 1960 Unknown [id number] [id number] [id number] 1960 Unknown [id number] 2.16.84 [id number] Unknown [id number] 2.1 [id number] Unknown [id number] 2.16.8 [id number] Unknown [id number] 2.16.8 [id number] Unknown [id number] 2.16.8 [id number] Social History Date Type Detail Facility Sex Assigned At [employer] Other Start: 1960 Sex Assigned At Female F [facility] Start: 10-10-2023 Tobacco smoking stat us MIIS Ex-smoker (finding) [facility] Goals Date Patient Goal Desired Activity [...] regarding further treatment if you are interested. [employer] Other Evaluation note Note Date & Type Note Facility Evaluation note No assessment information availa [facility] Work Phone: History general Narrative - Reported Note Date & Type Note Facility History general Narrative - Reported Type Medical History Hypertension Medical History tremors Medical History acid reflux Medical History skin cancers Surgical History cholecystectomy Hospitalization History see above [employer] Other Summary Purpose Family History No Family [...] DATE CREATED AUTHOR 02/19/2023 [facility] DATE CREATED AUTHOR 'S ORGANIZ ATION 12/23/2023 [facility] Care Teams (unrecognized sec tion and content) [...] BE BASED ON THE PRIMARY CLINICAL RECORDS. [facility]. provides no warranty or guarantee of the accuracy or completeness of information in this document.
[2024-07-30 17:17] VITALS: BP 145/85; PULSE 78; O2SAT 99
== END 2024-07-30 17:17 | disposition home or self-care (01) ==
PROVIDERS: Emergency Provider Emergency Medicine
DX: T63.441A Toxic effect of venom of bees, accidental (unintentional), initial encounter (principal)
CPT/HCPCS: 96374; 96375; 99284; J1200; J2919

== ENCOUNTER 2024-10-31 12:07 | Emergency (ER) | payer MEDICARE, MEDICAID, SELFPAY ==
[2024-10-31 12:15] VITALS: BP 148/81; PULSE 88; TEMP 36.9; O2SAT 98; BMI 25.2
--- NOTE | 2024-10-31 12:20 | XR_ITS ---
The [address] [address] Patient Name: ZAKI MOORE MRN: [id number] date: 1960 Sex: F Assigned Patient Location: ER Current Patient Location: ER Accession/Order Number: [id number] Exam Date: 10/31/2024 12:25 Report Date: 10/31/2024 12:45 At the request of: JOVANNY SOLARES Procedure: XR chest 2V EXAM: Chest x-ray HISTORY: . cough . COMPARISON: 12/07/2023 TECHNIQUE: Frontal and lateral chest FINDINGS: Heart and vascularity are unremarkable. Lungs are free of focal infiltrates. There is a scoliotic deformity of the spine with convexity to the right. XR/XR chest 2V IMPRESSION: No acute heart or lung disease identified. Electronically authenticated by: KIRAN SCHWARTZ Date: 10/31/2024 12:45
--- NOTE | 2024-10-31 12:34 | ED_ITS ---
HPI HPI - General Adult General Chief complaint: Upper Respiratory Infection Stated complaint: urti complaints Time Seen by Provider: 10/31/24 12:09 Source: patient Mode of arrival: walk-in History of Present Illness HPI narrative: Patient presents to ED complaining of cough and not feeling well for the past 3 days. She said she had some lung problems after COVID in the past and she has a nebulizer machine at home. She said she has not used it in a long time but recently started using it again because she was feeling short of breath. She said her chest has been hurting from coughing so much. Upon not hypoxic. She is 98% on room air not tachycardic or hypotensive. She is resting comfortably in the bed in no acute distress, no respiratory distress. She does report some nasal congestion and sneezing as well. No fevers. No other complaints at this time Related Data Home Medications ?Medication ?Instructions ?Recorded ?Confirmed benazepril 10 mg tablet 10 mg PO DAILY 07/30/24 10/31/24 omeprazole 10 mg capsule,delayed 10 mg PO DAILY 07/30/24 07/30/24 release Previous Rx's ?Medication ?Instructions ?Recorded hydroxyzine HCl 25 mg tablet 25 mg PO Q6H PRN itching #20 tabs 07/30/24 prednisone 20 mg tablet 40 mg (2 x 20 mg) PO DAILY 3 days 07/30/24 #6 tabs albuterol sulfate 90 mcg/actuation 1 inh inhalation Q6H PRN shortness 10/31/24 aerosol inhaler of breath or wheezing #8.5 grams methylprednisolone 4 mg tablets in 4 mg PO DAILY #21 ea 10/31/24 a dose pack (Medrol (Neal)) Allergies Allergy/AdvReac Type Severity Reaction Status Date / Time beeswax Allergy Severe Hives Verified 07/30/24 16:22 ciprofloxacin Allergy Hives Verified 07/30/24 16:22 pseudoephedrine (From Allergy Anaphylaxis Verified 07/30/24 16:22 Sudafed) Opioid HPI Opioid Management Most Recent Opioid Data: No Data to Display Review of Systems ROS Status of ROS 10 or more systems reviewed and unremark able except as noted in history and below PFSH PFSH Social History Smoking status: Never smoker Little interest or pleasure in doing things: not at all Feeling down, depressed, or hopeless: not at all Exam Narrative Exam Narrative: Time Seen: Vital Signs: [Per nurse's notes.] General: [Alert] Skin: [Warm, dry, no rash.] Head: [Normocephalic, atraumatic.] Neck: [Supple, trachea midline.] Eye: [Pupils are equal, round and reactive to light, extraocular movements are intact, normal conjunctiva.] Ears, nose, mouth and throat: oral mucosa moist. Cardiovascular: [Regular rate and rhythm, no murmur.] Respiratory: [Lungs are clear to auscultation, respirations are non-labored, breath sounds are equal.] Chest wall: [No tenderness, no deformity.] Gastrointestinal: [Soft, nontender, non distended, normal bowel sounds.] MSK: 5 out of 5 muscle strength x 4 extremities no calf pain or edema Lymphatics: [No lymphadenopathy.] Psychiatric: [Cooperative, appropriate mood & affect.] Neurological: [Alert and oriented to person, place, time, and situation, no focal neurological deficit observed.] Constitutional Vital Signs, click to edit/add: Last Vital Signs Temp 98.5 F 10/31/24 12:15 Pulse 88 10/31/24 12:15 Resp 18 10/31/24 12:15 BP 148/81 H 10/31/24 12:15 Pulse Ox 98 10/31/24 12:15 O2 Del Method Room Air 10/31/24 12:15 Course Vital Signs Vital signs: Vital Signs Temperature 98.5 F 10/31/24 12:15 Pulse Rate 88 10/31/24 12:15 Respiratory Rate 18 10/31/24 12:15 Blood Pressure 148/81 H 10/31/24 12:15 Pulse Oximetry 98 10/31/24 12:15 Oxygen Delivery Method Room Air 10/31/24 12:15 Temperature 98.5 F 10/31/24 12:15 Pulse Rate 88 10/31/24 12:15 Respiratory Rate 18 10/31/24 12:15 Blood Pressure 148/81 H 10/31/24 12:15 Pulse Oximetry 98 10/31/24 12:15 Oxygen Delivery Method Room Air 10/31/24 12:15 Medical Decision Making MDM Narrative Medical decision making narrative: Chest x-ray is clear of pneumonia. Patient does not have flu or COVID. Patient will be sent home with steroid taper and albuterol. She has a nebulizer machine at home and was instructed to continue using this for wheezing or cough. Return to ED if worsening symptoms otherwise follow-up with your family doctor. Patient is not hypoxic no respiratory distress and is comfortable with care plan for home Differential Diagnosis Differential Diagnosis: Flu COVID upper respiratory infection pneumonia Lab Data Lab results reviewed: Yes I reviewed the patient's lab results Labs: Lab Results 10/31/24 Range/Units 12:30 Influenza Type A Ag Negative Influenza Type B Ag Negative SARS-CoV-2 Ag (CV2AG) Negative (NEGATIVE) Imaging Data Chest x-ray: Radiologist's impression: ITS Impressions Chest X-Ray 10/31/24 12:20 IMPRESSION: No acute heart or lung disease identified. Electronically authenticated by: KIRAN CSHWARTZ Date: 10/31/2024 12:45 Discharge Plan Discharge Chief Complaint: Upper Respiratory Infection Clinical Impression: Upper respiratory infection Patient Disposition: Home, Self-Care Time of Disposition Decision: 13:08 Condition: Good Mode of Transportation: Private Vehicle Prescriptions / Home Meds: New albuterol sulfate 90 mcg/actuation HFA aerosol inhaler 1 inh inhalation Q6H PRN (Reason: shortness of breath or wheezing) Qty: 8.5 0RF methylprednisolone [Medrol (Neal)] 4 mg tablets,dose pack 4 mg PO DAILY Qty: 21 0RF No Action benazepril 10 mg tablet 10 mg PO DAILY omeprazole 10 mg capsule,delayed release(DR/EC) 10 mg PO DAILY prednisone 20 mg tablet 40 mg PO DAILY 3 Days Qty: 6 0RF hydroxyzine HCl 25 mg tablet 25 mg PO Q6H PRN (Reason: itching) Qty: 20 0RF Print Language: Italian Instructions: Acute Bronchitis (ED) Referrals: Physician,Non-Staff, MD [Primary Care Provider] - 1 week Discharge Date/Time: 10/31/24 13:24
--- OUTSIDE RECORDS SUMMARY | 2024-10-31 12:39 | XMS_ITS | CCD ---
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 Name Role Phone Zenia Wang Unavailable PAY [...] (3 sources) Latex Drug allergy 3 Blisters, [facility] (1 source) Sertraline Drug Allergy hives [facility] [employer] Other (1 source) Bee Sting Drug allergy anaphylaxis [facility] [employer] Other (1 source) bee venom Drug allergy (disorder) [facility] (1 source) Ketanserin Drug Allergy [facility] (1 source) Nystatin Drug Allergy [facility] (1 source) Soy protein Drug allergy (disorder) [facility] (3 sources) Sulfonamides (Antibiotic); Translations: [Sulfa (Sulfonamide Antibiotics)] Allergy to substance 3 Hives [facility] (1 source) Latex Drug allergy (disorder) 3 [facility] (1 source) Sertraline Drug Allergy 2 [facility] (1 source) bee venom protein (honey bee) Drug allergy (disorder) 2 [facility] Medications Current Medications Medication Drug [...] D2 Compound Vitamin D (Ergocalciferol) 1.25 MG (47769 UT) Oral for 84 Days Active ibuprofen [...] on 10-10-2023 Amphetamines Ql (U) Negative Negative [facility] Barbiturates [Presence] in U rine by Screen methodOrdered By: Parviz Garcias on 10-10-2023 Barbiturates Screen Ql (U) Negative Negative [facility] Benzodiazepines Screen Ql (U )Ordered By: Parviz Garcias on 10-10-2023 Benzodiazepines Ql (U) Negative Negative [facility] Benzoylecgonine [Presence] i n Urine by Screen methodOrdered By: Parviz Garcias on 10-10-2023 Benzoylecgonine Screen Ql (U) Negative Negative [facility] Cannabinoids [Presence] in U rine by Screen methodOrdered By: Parviz Garcias on 10-10-2023 Cannabinoids Screen Ql (U) Positive Negative [facility] Comment on above: These are unconfirme d results and should not be used for legal purposes. Drug Cut-Off Concentration: AMPH 1000 ng/mL ADAN 200 ng/mL JAME 200 ng/mL COCM 300 ng/mL OP 300 ng/mL PCP 25 ng/mL THC 20 ng/mL Drug Screen,Urineon 10-10-20 Amphetamine Screen,Urine Negative Normal Negative [facility] Comment on above: Performed By: #### U RDS #### [address] Barbiturate Screen,Urine Negative Normal Negative [facility] Comment on above: Performed By: #### U RDS #### [facility] [address] [place] [address] [place] Benzodiazepines Screen,Urine Negative Normal Negative [facility] Comment on above: Performed By: #### U RDS #### [facility] [address] [place] [address] [place] Cannabinoid Screen,Urine Positive High Negative [facility] Comment on above: Result Comment: Thes e are unconfirmed results and should not be used for legal purposes. Drug Cut-Off Concentration: AMPH 1000 ng/mL ADAN 200 ng/mL JAME 200 ng/mL COCM 300 ng/mL OP 300 ng/mL PCP 25 ng/mL THC 20 ng/mL PERFORMED BY: [place] [address] PATHOLOGIST [employer] SUPERVISOR DAX MOMIN M.D. Performed By: #### U RDS #### [address] Cocaine Screen,Urine Negative Normal Negative [facility] Comment on above: Performed By: #### U RDS #### [address] Opiate Screen,Urine Negative Normal Negative [facility] Comment on above: Performed By: #### U RDS #### [address] Phencyclidine Screen,Urine Negative Normal Negative [facility] Comment on above: Performed By: #### U RDS #### [address] MR head/brain wo/w conon MR head/brain wo/w con [facility] [place] [address] [place] [address] MRI Report Signed Patient: Caridad Garcia MR#: [id number] 18 : 1960 Acct:[id number] Age/Sex: 63 / F ADM Date: 10/10/23 Loc: [place] Room: Type: [facility] Attending Dr: Preet Mcdonnell DO Copies to: [...] Bennie Leahy M.D.10/10/2023 1:10 PM Dictation Location: [place] [address] Transcribed By: [facility] 10/10/23 1310 Dictated By: Bennie Leahy DO 10/10/23 1301 Signed By: 10/10/23 1310 Normal [facility] Opiates [Presence] in Urine by Screen methodOrdered By: Parviz Garcias on 10-10-2023 Opiates Screen Ql (U) Negative Negative [facility] Phencyclidine Screen Ql (U)O rdered By: Parviz Garcias on 10-10-2023 Phencyclidine Ql (U) Negative Negative [facility] Creatinine (Bld) [Mass/Vol]O rdered By: Preet Mcdonnell on 09-12-2023 Creatinine [Mass/Vol] 0.7 mg/dL 0.6-1.3 [facility] Comment on above: ER/ESD physician is notified/shown all ISTAT results.Critical values may be confirmed by laboratory testing ifdeemed necessary by ER attending doctor. MG MAMM SCREEN 3D ROXANNE CADon 02-14-2023 MG MAMM SCREEN 3D ROXANNE CAD Patient: CARIDAD GARCIA Exam Date: 02/14/2023 : 1960 Gender:F Ordering : [facility] Admission #: [id number] Family : Order #: [id number] CLICK HERE TO VIEW EXAM RADIOLOGY REPORT [...] Treatments None Family Cancers None LOCATION: [facility] BREAST COMPOSITION: Heterogeneously dense,which may obscure small [...] M.D. on 02/15/2023 at 08:18 Normal [facility] CBC AUTO DIFFon 01-14-2023 BASO # 0.1 103/ul Normal 0.0-0.1 [facility] Comment on above: Performed By: #### C BC #### [facility] [address] [place] [address] Dr. Cat Cotton Basophils/100 WBC (Bld) 0.7 % Normal 0.2-2.0 [facility] Comment on above: Performed By: #### C BC #### [facility] [address] [place] [address] Dr. Cat Cotton EO # 0.2 103/ul Normal 0.0-0.7 [facility] Comment on above: Performed By: #### C BC #### [facility] [address] [place] [address] Dr. Cat Cotton Eosinophils/100 WBC (Bld) 2.4 % Normal 0.9-7.0 [facility] Comment on above: Performed By: #### C BC #### [facility] [address] [place] [address] Dr. Cat Cotton Erythrocyte distribution width (RBC) [Ratio] 13.3 % Normal 11.0-15.0 [facility] Comment on above: Performed By: #### C BC #### [facility] [address] [place] [address] Dr. Cat Cotton Hematocrit (Bld) [Volume fraction] 40.1 % Normal 36.0-48.0 [facility] Comment on above: Performed By: #### C BC #### [facility] [address] [place] [address] Dr. Cat Cotton Hemoglobin (Bld) [Mass/Vol] 13.8 g/dL Normal 12.0-16.0 [facility] Comment on above: Performed By: #### C BC #### [facility] [address] [place] [address] Dr. Cat Cotton IG # 0.02 10e3/ul Normal 0.00-0.03 [facility] Comment on above: Performed By: #### C BC #### [facility] [address] [place] [address] Dr. Cat Cotton IG % 0.2 % Normal 0.0-0.5 [facility] Comment on above: Performed By: #### C BC #### [facility] [address] [place] [address] Dr. Cat Cotton LYMPH # 2.3 103/ul Normal 1.2-3.8 [facility] Comment on above: Performed By: #### C BC #### [facility] [address] [place] [address] Dr. Cat Cotton Lymphocytes/100 WBC (Bld) 28.9 % Normal 20.5-60.0 [facility] Comment on above: Performed By: #### C BC #### [facility] [address] [place] [address] Dr. Cat Cotton MANUAL DIFF REQ NO Normal [facility] Comment on above: Performed By: #### C BC #### [facility] [address] [place] [address] Dr. Cat Cotton MCH (RBC) [Entitic mass] 29.8 pg Normal 26.7-34.0 [facility] Comment on above: Performed By: #### C BC #### [facility] [address] [place] [address] Dr. Cat Cotton MCHC (RBC) [Mass/Vol] 34.4 g/dL Normal 29.9-35.2 [facility] Comment on above: Performed By: #### C BC #### [facility] [address] [place] [address] Dr. Cat Cotton MCV (RBC) [Entitic vol] 86.6 fL Normal 81.0-99.0 [facility] Comment on above: Performed By: #### C BC #### [facility] [address] [place] [address] Dr. Cat Cotton MONO # 0.6 103/ul Normal 0.3-0.8 [facility] Comment on above: Performed By: #### C BC #### [facility] [address] [place] [address] Dr. Cat Cotton Monocytes/100 WBC (Bld) 7.9 % Normal 1.7-12.0 [facility] Comment on above: Performed By: #### C BC #### [facility] [address] [place] [address] Dr. Cat Cotton NEUT # 4.8 103/ul Normal 1.4-6.5 [facility] Comment on above: Performed By: #### C BC #### [facility] [address] [place] [address] Dr. Cat Cotton Neutrophils/100 WBC (Bld) 59.9 % Normal 43.0-75.0 [facility] Comment on above: Performed By: #### C BC #### [facility] [address] [place] [address] Dr. Cat Cotton Platelet mean volume (Bld) [Entitic vol] 9.2 fL Critically low 9.5-13.5 [facility] Comment on above: Performed By: #### C BC #### [facility] [address] [place] [address] Dr. Cat Cotton PLT 229 103/ul Normal 150-450 [facility] Comment on above: Performed By: #### C BC #### [facility] [address] [place] [address] Dr. Cat Cotton RBC 4.63 106/ul Normal 4.20-5.40 [facility] Comment on above: Performed By: #### C BC #### [facility] [address] [place] [address] Dr. Cat Cotton WBC 8.0 103/ul Normal 4.0-11.0 [facility] Comment on above: Performed By: #### C BC #### [facility] [address] [place] [address] Dr. Cat Cotton Covid-19 PCR (CVDTB)on SARS-CoV-2 (COVID-19) RNA KRYSTA+probe Ql (Unsp spec) Not detected Normal NOT DETECTED [facility] Comment on above: Result Comment: When diagnostic [...] for this test is supported by the [place] of Health and Human Service's declaration that [...] used). Performed By: #### C VDTB #### [facility] [address] [place] [address] Dr. Cat Cotton INFLUENZA A AND B [facility]on [facility] Normal [facility] Comment on above: Result Comment: Nega tive for Flu A protein angiten. Infection due to Flu A cannot be ruled out. Flu A angiten in the sample may be below the detection limit of the test. Performed By: #### I NFLUAB #### [facility] [address] [place] [address] Dr. Cat Cotton INFLUBNEG SEE BELOW Normal [facility] Comment on above: Result Comment: Nega tive for Flu B protein antigen. Infection due to Flu B cannot be ruled out. Flu B antigen in the sample may be below the detection limit of the test. Performed By: #### I NFLUAB #### [facility] [address] [place] [address] Dr. Cat Cotton INFLUENZA A AG Negative Normal NEGATIVE SEE COMMENT [facility] Comment on above: Performed By: #### I NFLUAB #### [facility] [address] [place] [address] Dr. Cat Cotton INFLUENZA B AG Negative Normal NEGATIVE SEE COMMENT [facility] Comment on above: Performed By: #### I NFLUAB #### [facility] [address] [place] [address] Dr. Cat Cotton LIPASEon 01-14-2023 Lipase [Catalytic activity/Vol] 144.0 U/L Normal 73.0-393.0 [facility] Comment on above: Performed By: #### B MP, HSTROPN, LIPA #### [facility] [address] [place] [address] Dr. Cat Cotton PROF CHEM 8 (BAS METB)on Anion gap [Moles/Vol] 12.1 mmol/L Normal [facility] Comment on above: Performed By: #### B MP, HSTROPN, LIPA #### [facility] [address] [place] [address] Dr. Cat Cotton Calcium [Mass/Vol] 9.2 mg/dL Normal 8.5-10.1 [facility] Comment on above: Performed By: #### B MP, HSTROPN, LIPA #### [facility] [address] [place] [address] Dr. Cat Cotton Chloride [Moles/Vol] 103 mmol/L Normal 98-107 [facility] Comment on above: Performed By: #### B MP, HSTROPN, LIPA #### [facility] [address] [place] [address] Dr. Cat Cotton CO2 [Moles/Vol] 28.3 mmol/L Normal 21.0-32.0 [facility] Comment on above: Performed By: #### B MP, HSTROPN, LIPA #### [facility] [address] [place], [place] [address] Dr. Cat Cotton Creatinine [Mass/Vol] 0.70 mg/dL Normal 0.55-1.02 [facility] Comment on above: Performed By: #### B MP, HSTROPN, LIPA #### [facility] [address] [place] [address] [address] Cat Cotton EGFR-AF LEBANESE >60 Normal >=60 [facility] Comment on above: Performed By: #### B MP, HSTROPN, LIPA #### [facility] [address] [place] [address] [address] Cat Cotton EGFR-NON AF LEBANESE >60 Normal >=60 [facility] Comment on above: Performed By: #### B MP, HSTROPN, LIPA #### [facility] [address] [place] [address] [address] Cat Cotton Glucose [Mass/Vol] 91 mg/dL Normal 74-106 [facility] Comment on above: Performed By: #### B MP, HSTROPN, LIPA #### [facility] [address] [place] [address] [address] Cat Cotton Potassium [Moles/Vol] 3.4 mmol/L Critically low 3.5-5.1 [facility] Comment on above: Performed By: #### B MP, HSTROPN, LIPA #### [facility] [address] [place] [address] [address] Cat Cotton Sodium [Moles/Vol] 140 mmol/L Normal 136-145 [facility] Comment on above: Performed By: #### B MP, HSTROPN, LIPA #### [facility] [address] [place] [address] [address] Cat Cotton Urea nitrogen [Mass/Vol] 8.0 mg/dL Normal 7.0-18.0 [facility] Comment on above: Performed By: #### B MP, HSTROPN, LIPA #### [facility] [address] [place] [address] [address] Cat Cotton Urea nitrogen/Creatinine [Mass ratio] 11.4 mg/mg Normal [facility] Comment on above: Performed By: #### B MP, HSTROPN, LIPA #### [facility] [address] [place], [place] [address] Dr. Cat Cotton TROPONIN, HIGH SENSITIVITYon 01-14-2023 HSTROP <4.0 Normal 4.0-51.3 [facility] Comment on above: Result Comment: CUT- OFF POINTS HAVE BEEN ESTABLISHED BASED ON THE FOURTH UNIVERSAL DEFINITIONS OF MYOCARDIAL INFARCTION. THE UPPER REFERENCE LIMIT (URL) OF TROPONIN, DEFINED THE 99TH PERCENTILE OF cTnI DISTRIBUTION IN A REFERENCE POPULATION, HAS BEEN CONFIRMED THE DECISION THRESHOLD FOR CA DIAGNOSIS. Performed By: #### B MP, HSTROPN, LIPA #### [facility] [address] [place], [place] [address] Dr. Cat Cotton COVID Quick Testingon 2021 Result Positive [employer] Other Vital Signs Date Time Vital Sign Value Performing Clinician Faci nayelyy 10-10-2023 11:17-0500 Diastolic blood pressure 67 mm[Hg] DO Christopher Kecia Work Phone: [facility] 10-10-2023 11:17-0500 Heart rate 57 /min DO Christopher Kecia Work Phone: [facility] 10-10-2023 11:17-0500 Respiratory rate 16 /min DO Christopher Kecia Work Phone: [facility] 10-10-2023 11:17-0500 SaO2% (BldA) [Mass fraction] 100 % DO Christopher Kecia Work Phone: [facility] 10-10-2023 11:17-0500 Systolic blood pressure 114 mm[Hg] DO Christopher Kecia Work Phone: [facility] 10-10-2023 10:42-0500 Inhaled oxygen flow rate 8 L/min DO Ti Knightopher [employer] Work Phone: [facility] 10-10-2023 09:53-0500 Body height 157.48 cm DO Christopher Kecia Work Phone: [facility] 10-10-2023 09:53-0500 Body mass index (BMI) [Ratio] 26.2 kg/m2 DO Preet Mcdonnell Work Phone: [facility] 10-10-2023 09:53-0500 Body weight 65 kg DO Preet Mcdonnell Work Phone: [facility] 10-10-2023 08:22-0500 Body temperature 97.9 [degF] DO Preet Mcdonnell Work Phone: [facility] 09-12-2023 08:43-0400 Body height 157.48 cm DO Preet Mcdonnell Work Phone: [facility] 09-12-2023 08:43-0400 Body weight 62.59 kg DO Preet Mcdonnell Work Phone: [facility] 06-09-2022 15:10-0400 Body height 157.48 cm Zenia Wang Other [employer] [facility] [employer] Other 06-09-2022 15:10-0400 Body mass index (BMI) [Ratio] 26.52 kg/m2 Zenia Wang Other [employer] Other 06-09-2022 15:10-0400 Body temperature 97.5 [degF] Zenia Wang Other [employer] Other 06-09-2022 15:10-0400 Body weight 65.77 kg Zenia Kathleen Other [employer] Other 06-09-2022 15:10-0400 Respiratory rate 18 /min Zenia Wang Other [employer] Other 06-09-2022 15:10-0400 SaO2% (BldA) [Mass fraction] 97 % Zenia Wang Other [employer] Other Encounters Encounter Date Encounter Type Care Provider Facility Start: 10-10-2023 End: 10-10-2023 Admission to same day surgery center DO Preet Mcdonnell Work Phone: [facility] [place] Start: 10-10-2023 End: 10-10-2023 ambulatory NON STAFF [facility] Work Phone: Start: 09-21-2023 End: 09-21-2023 ambulatory Preet Mcdonnell Facility:[facility] Start: 09-21-2023 End: 09-21-2023 ambulatory NON STAFF [facility] Work Phone: Start: 09-21-2023 End: 09-21-2023 Patient encounter procedure DO Preet Mcdonnell Work Phone: [facility] Work Phone: Start: 09-12-2023 End: 09-12-2023 ambulatory NON STAFF Facility:[facility] Start: 09-12-2023 End: 09-12-2023 Patient encounter procedure DO Preet Mcdonnell Work Phone: [facility] [place] Work Phone: Start: 02-14-2023 End: 02-15-[address] DOCTOR CUNNINGHAM Facility:[facility] Start: 01-14-2023 End: 01-14-[address] BENNIE KEE . Facility:[facility] Start: 06-09-2022 End: 06-09-2022 ambulatory Zenia Wang Other [employer] Other Start: 06-09-2022 Office outpatient ne w 20 minutes Zenia Wang [facility] Plan of Treatment Date Care Activity Detail Author Start: 10-10-2023 OR CAT/MRI W/ IV SEDATION (Not Applicable) OR CAT/MRI W/ IV SEDATION (Not Applicable) [facility] Start: 10-10-2023 End: 10-10-2023 [facility] Start: 10-10-2023 MR Unspecified body region [facility] Start: 10-10-2023 MRI of head MR head/brain wo/w con [facility] Patient Education MRI Scan Moder ate and Deep Sedation in Adults [facility] Work Phone: [facility] Payers Date Payer Category Payer Medicare [id number] 191 [id number] 2023 Self-pay 1961 Unknown [id number] 1960 Unknown [id number] [id number] [id number] 1960 Unknown [id number] 2.16.84 [id number] Unknown [id number] 2.1 [id number] Unknown [id number] 2.16.8 [id number] Unknown [id number] 2.16.8 [id number] Unknown [id number] 2.16.8 [id number] Social History Date Type Detail Facility Sex Assigned At [employer] Other Start: 1960 Sex Assigned At Female F [facility] Start: 10-10-2023 Tobacco smoking stat us [facility] Ex-smoker (finding) [facility] Goals Date Patient Goal Desired Activity [...] regarding further treatment if you are interested. [employer] Other Evaluation note Note Date & Type Note Facility Evaluation note No assessment information availa [facility] Work Phone: History general Narrative - Reported Note Date & Type Note Facility History general Narrative - Reported Type Medical History Hypertension Medical History tremors Medical History acid reflux Medical History skin cancers Surgical History cholecystectomy Hospitalization History see above [employer] Other Summary Purpose Family History No Family [...] DATE CREATED AUTHOR 02/19/2023 [facility] DATE CREATED AUTHOR 'S ORGANIZ ATION 12/23/2023 [facility] Care Teams (unrecognized sec tion and content) Team Status: Active Member Role Status Dates NON STAFF Primary Care Provider Active Team Status: Inactive Member Role Status Dates NON STAFF Primary Care Provider Active Preet Mcdonnell DO Attending Provider Active Team Status: Inactive Member Role Status Dates Preet Mcdonenll DO Attending Provider Active NON STAFF Primary [...] CLINICAL RECORDS. [facility]. provides no warranty or guarantee of the accuracy or completeness of information in this document.
[2024-10-31 13:05] LABS: Influenza Virus A Antigen Negative; Influenza Virus B Antigen Negative; Internal Control Within Normal Limits
[2024-10-31 13:06] LABS: Internal Control Within Normal Limits; SARS-CoV-2 Ag NEGATIVE (NEGATIVE)
[2024-10-31] MEDS: KETOROLAC TROMETHAMINE 60 MG/2 ML VIAL IM (13:18)
== END 2024-10-31 13:24 | disposition home or self-care (01) ==
PROVIDERS: Emergency Provider Emergency Medicine
DX: J06.9 Acute upper respiratory infection, unspecified (principal); Z86.16 Personal history of COVID-19; R06.02 Shortness of breath
CPT/HCPCS: 71046; 87804; 87811; 96372; 99284; J1885

== ENCOUNTER 2024-12-09 12:39 | Emergency (ER) | payer MEDICARE, MEDICAID, SELFPAY ==
--- OUTSIDE RECORDS SUMMARY | 2024-12-09 12:51 | XMS_ITS | CCD ---
Author Organization [facility] Care Team Providers Care Supervisor Line Department Name Role Phone Zenia Wang Unavailable PAY [...] (3 sources) Latex Drug allergy 3 Blisters, [facility] (1 source) Sertraline Drug Allergy hives [facility] [employer] Other (1 source) Bee Sting Drug allergy anaphylaxis [facility] [employer] Other (1 source) bee venom Drug allergy (disorder) [facility] (1 source) Ketanserin Drug Allergy [facility] (1 source) Nystatin Drug Allergy [facility] (1 source) Soy protein Drug allergy (disorder) [facility] (3 sources) Sulfonamides (Antibiotic); Translations: [Sulfa (Sulfonamide Antibiotics)] Allergy to substance 3 Hives [facility] (1 source) Latex Drug allergy (disorder) 3 [facility] (1 source) Sertraline Drug Allergy 2 [facility] (1 source) bee venom protein (honey bee) Drug allergy (disorder) 2 [facility] Medications Current Medications Medication Drug [...] D2 Compound Vitamin D (Ergocalciferol) 1.25 MG (33333 UT) Oral for 84 Days Active ibuprofen [...] on 10-10-2023 Amphetamines Ql (U) Negative Negative [facility] Barbiturates [Presence] in U rine by Screen methodOrdered By: Parviz Garcias on 10-10-2023 Barbiturates Screen Ql (U) Negative Negative [facility] Benzodiazepines Screen Ql (U )Ordered By: Parviz Garcias on 10-10-2023 Benzodiazepines Ql (U) Negative Negative [facility] Benzoylecgonine [Presence] i n Urine by Screen methodOrdered By: Parviz Garcias on 10-10-2023 Benzoylecgonine Screen Ql (U) Negative Negative [facility] Cannabinoids [Presence] in U rine by Screen methodOrdered By: Parviz Garcias on 10-10-2023 Cannabinoids Screen Ql (U) Positive Negative [facility] Comment on above: These are unconfirme d results and should not be used for legal purposes. Drug Cut-Off Concentration: AMPH 1000 ng/mL ADAN 200 ng/mL JAME 200 ng/mL COCM 300 ng/mL OP 300 ng/mL PCP 25 ng/mL THC 20 ng/mL Drug Screen,Urineon 10-10-20 Amphetamine Screen,Urine Negative Normal Negative [facility] Comment on above: Performed By: #### U RDS #### [address] Barbiturate Screen,Urine Negative Normal Negative [facility] Comment on above: Performed By: #### U RDS #### [facility] [address] [place] [address] [place] Benzodiazepines Screen,Urine Negative Normal Negative [facility] Comment on above: Performed By: #### U RDS #### [facility] [address] [place] [address] [place] Cannabinoid Screen,Urine Positive High Negative [facility] Comment on above: Result Comment: Thes e are unconfirmed results and should not be used for legal purposes. Drug Cut-Off Concentration: AMPH 1000 ng/mL ADAN 200 ng/mL JAME 200 ng/mL COCM 300 ng/mL OP 300 ng/mL PCP 25 ng/mL THC 20 ng/mL PERFORMED BY: [place] [address] PATHOLOGIST WRAPPER STITCHER DAX MOMIN M.D. Performed By: #### U RDS #### [address] Cocaine Screen,Urine Negative Normal Negative [facility] Comment on above: Performed By: #### U RDS #### [address] Opiate Screen,Urine Negative Normal Negative [facility] Comment on above: Performed By: #### U RDS #### [address] Phencyclidine Screen,Urine Negative Normal Negative [facility] Comment on above: Performed By: #### U RDS #### [address] MR head/brain wo/w conon MR head/brain wo/w con [facility] [place] [address] [place] [address] MRI Report Signed Patient: Caridad Garcia MR#: [id number] 18 : 1960 Acct:[id number] Age/Sex: 63 / F ADM Date: 10/10/23 Loc: [place] Room: Type: [facility] Attending Dr: Preet Mcdonnell [...] Bennie Leahy M.D.10/10/2023 1:10 PM Dictation Location: [place] [address] Transcribed By: [facility] 10/10/23 1310 Dictated By: Bennie Leahy DO 10/10/23 1301 Signed By: 10/10/23 1310 Normal [facility] Opiates [Presence] in Urine by Screen methodOrdered By: Parviz Garcias on 10-10-2023 Opiates Screen Ql (U) Negative Negative [facility] Phencyclidine Screen Ql (U)O rdered By: Parviz Garcias on 10-10-2023 Phencyclidine Ql (U) Negative Negative [facility] Creatinine (Bld) [Mass/Vol]O rdered By: Preet Mcdonnell on 09-12-2023 Creatinine [Mass/Vol] 0.7 mg/dL 0.6-1.3 [facility] Comment on above: ER/ESD physician is notified/shown all ISTAT results.Critical values may be confirmed by laboratory testing ifdeemed necessary by ER attending doctor. MG MAMM SCREEN 3D ROXANNE CADon 02-14-2023 MG MAMM SCREEN 3D ROXANNE CAD Patient: CARIDAD GARCIA Exam Date: 02/14/2023 : 1960 Gender:F Ordering : [facility] Admission #: [id number] Family : Order #: [id number] CLICK HERE TO VIEW EXAM RADIOLOGY REPORT [...] # 0.1 103/ul Normal 0.0-0.1 [facility] Comment on above: Performed By: #### C BC #### [facility] [address] [place] [address] Dr. Cat Cotton Basophils/100 WBC (Bld) 0.7 % Normal 0.2-2.0 [facility] Comment on above: Performed By: #### C BC #### [facility] [address] [place] [address] Dr. Cat Cotton EO # 0.2 103/ul Normal 0.0-0.7 [facility] Comment on above: Performed By: #### C BC #### [facility] [address] [place] [address] Dr. Cat Cotton Eosinophils/100 WBC (Bld) 2.4 % Normal 0.9-7.0 [facility] Comment on above: Performed By: #### C BC #### [facility] [address] [place] [address] Dr. Cat Cotton Erythrocyte distribution width (RBC) [Ratio] 13.3 % Normal 11.0-15.0 [facility] Comment on above: Performed By: #### C BC #### [facility] [address] [place] [address] Dr. Cat Cotton Hematocrit (Bld) [Volume fraction] 40.1 % Normal 36.0-48.0 [facility] Comment on above: Performed By: #### C BC #### [facility] [address] [place] [address] Dr. Cat Cotton Hemoglobin (Bld) [Mass/Vol] 13.8 g/dL Normal 12.0-16.0 [facility] Comment on above: Performed By: #### C BC #### [facility] [address] [place] [address] Dr. Cat Cotton IG # 0.02 10e3/ul Normal 0.00-0.03 [facility] Comment on above: Performed By: #### C BC #### [facility] [address] [place] [address] Dr. Cat Cotton IG % 0.2 % Normal 0.0-0.5 [facility] Comment on above: Performed By: #### C BC #### [facility] [address] [place] [address] Dr. Cat Cotton LYMPH # 2.3 103/ul Normal 1.2-3.8 [facility] Comment on above: Performed By: #### C BC #### [facility] [address] [place] [address] Dr. Cat Cotton Lymphocytes/100 WBC (Bld) 28.9 % Normal 20.5-60.0 [facility] Comment on above: Performed By: #### C BC #### [facility] [address] [place] [address] Dr. Cat Cotton MANUAL DIFF REQ NO Normal [facility] Comment on above: Performed By: #### C BC #### [facility] [address] [place] [address] Dr. Cat Cotton MCH (RBC) [Entitic mass] 29.8 pg Normal 26.7-34.0 [facility] Comment on above: Performed By: #### C BC #### [facility] [address] [place] [address] Dr. Cat Cotton MCHC (RBC) [Mass/Vol] 34.4 g/dL Normal 29.9-35.2 [facility] Comment on above: Performed By: #### C BC #### [facility] [address] [place] [address] Dr. Cat Cotton MCV (RBC) [Entitic vol] 86.6 fL Normal 81.0-99.0 [facility] Comment on above: Performed By: #### C BC #### [facility] [address] [place] [address] Dr. Cat Cotton MONO # 0.6 103/ul Normal 0.3-0.8 [facility] Comment on above: Performed By: #### C BC #### [facility] [address] [place] [address] Dr. Cat Cotton Monocytes/100 WBC (Bld) 7.9 % Normal 1.7-12.0 [facility] Comment on above: Performed By: #### C BC #### [facility] [address] [place] [address] Dr. Cat Cotton NEUT # 4.8 103/ul Normal 1.4-6.5 [facility] Comment on above: Performed By: #### C BC #### [facility] [address] [place] [address] Dr. Cat Cotton Neutrophils/100 WBC (Bld) 59.9 % Normal 43.0-75.0 [facility] Comment on above: Performed By: #### C BC #### [facility] [address] [place] [address] Dr. Cat Cotton Platelet mean volume (Bld) [Entitic vol] 9.2 fL Critically low 9.5-13.5 [facility] Comment on above: Performed By: #### C BC #### [facility] [address] [place] [address] Dr. Cat Cotton PLT 229 103/ul Normal 150-450 [facility] Comment on above: Performed By: #### C BC #### [facility] [address] [place] [address] Dr. Cat Cotton RBC 4.63 106/ul Normal 4.20-5.40 [facility] Comment on above: Performed By: #### C BC #### [facility] [address] [place] [address] Dr. Cat Cotton WBC 8.0 103/ul Normal 4.0-11.0 [facility] Comment on above: Performed By: #### C BC #### [facility] [address] [place] [address] Dr. Cat Cotton Covid-19 PCR (CVDTB)on SARS-CoV-2 [...] for this test is supported by the [place] of Health and Human Service's declaration that [...] C VDTB #### [facility] [address] [place] [address] Dr. Cat Cotton INFLUENZA A AND B AGon 01-[facility] BELOW Normal [facility] Comment on above: Result Comment: Nega tive for Flu A protein angiten. Infection due to Flu A cannot be ruled out. Flu A angiten in the sample may be below the detection limit of the test. Performed By: #### I NFLUAB #### [facility] [address] [place] [address] Dr. Cat Cotton INFLUBNEG SEE BELOW Normal [facility] Comment on above: Result Comment: Nega tive for Flu B protein antigen. Infection due to Flu B cannot be ruled out. Flu B antigen in the sample may be below the detection limit of the test. Performed By: #### I NFLUAB #### [facility] [address] [place] [address] Dr. Cat Cotton INFLUENZA A AG Negative Normal NEGATIVE SEE COMMENT [facility] Comment on above: Performed By: #### I NFLUAB #### [facility] [address] [place] [address] Dr. Cat Cotton INFLUENZA B AG Negative Normal NEGATIVE SEE COMMENT [facility] Comment on above: Performed By: #### I NFLUAB #### [facility] [address] [place] [address] Dr. Cat Cotton LIPASEon 01-14-2023 Lipase [Catalytic activity/Vol] 144.0 U/L Normal 73.0-393.0 [facility] Comment on above: Performed By: #### B MP, HSTROPN, LIPA #### [facility] [address] [place] [address] Dr. Cat Cotton PROF CHEM 8 (BAS METB)on Anion gap [Moles/Vol] 12.1 mmol/L Normal [facility] Comment on above: Performed By: #### B MP, HSTROPN, LIPA #### [facility] [address] [place] [address] Dr. Cat Cotton Calcium [Mass/Vol] 9.2 mg/dL Normal 8.5-10.1 [facility] Comment on above: Performed By: #### B MP, HSTROPN, LIPA #### [facility] [address] [place] [address] Dr. Cat Cotton Chloride [Moles/Vol] 103 mmol/L Normal 98-107 [facility] Comment on above: Performed By: #### B MP, HSTROPN, LIPA #### [facility] [address] [place] [address] Dr. Cat Cotton CO2 [Moles/Vol] 28.3 mmol/L Normal 21.0-32.0 [facility] Comment on above: Performed By: #### B MP, HSTROPN, LIPA #### [facility] [address] [place], [place] [address] Dr. Cat Cotton Creatinine [Mass/Vol] 0.70 mg/dL Normal 0.55-1.02 [facility] Comment on above: Performed By: #### B MP, HSTROPN, LIPA #### [facility] [address] [place] [address] [address] Cat Cotton EGFR-AF [place]OU[place]ORE[place] >60 Normal >=60 [facility] Comment on above: Performed By: #### B MP, HSTROPN, LIPA #### [facility] [address] [place] [address] [address] Cat Cotton EGFR-NON AF [place] >60 Normal >=60 [facility] Comment on above: Performed By: #### B MP, HSTROPN, LIPA #### [facility] [address] [place] [address] [address] Cat Cotton Glucose [Mass/Vol] 91 mg/dL Normal 74-106 [facility] Comment on above: Performed By: #### B MP, HSTROPN, LIPA #### [facility] [address] [place] [address] [address] Cat Cotton Potassium [Moles/Vol] 3.4 mmol/L Critically low 3.5-5.1 [facility] Comment on above: Performed By: #### B MP, HSTROPN, LIPA #### [facility] [address] [place] [address] [address] Cat Cotton Sodium [Moles/Vol] 140 mmol/L Normal 136-145 [facility] Comment on above: Performed By: #### B MP, HSTROPN, LIPA #### [facility] [address] [place] [address] [address] Cat Cotton Urea nitrogen [Mass/Vol] 8.0 mg/dL Normal 7.0-18.0 [facility] Comment on above: Performed By: #### B MP, HSTROPN, LIPA #### [facility] [address] [place] [address] [address] Cat Cotton Urea nitrogen/Creatinine [Mass ratio] 11.4 mg/mg Normal [facility] Comment on above: Performed By: #### B MP, HSTROPN, LIPA #### [facility] [address] [place], [place] [address] Dr. Cat Cotton TROPONIN, HIGH SENSITIVITYon 01-14-2023 HSTROP <4.0 Normal 4.0-51.3 [facility] Comment on above: Result Comment: CUT- OFF POINTS HAVE BEEN ESTABLISHED BASED ON THE FOURTH UNIVERSAL DEFINITIONS OF MYOCARDIAL INFARCTION. THE UPPER REFERENCE LIMIT (URL) OF TROPONIN, DEFINED THE 99TH PERCENTILE OF cTnI DISTRIBUTION IN A REFERENCE POPULATION, HAS BEEN CONFIRMED THE DECISION THRESHOLD FOR [place] DIAGNOSIS. Performed By: #### B MP, HSTROPN, LIPA #### [facility] [address] [place], [place] [address] Dr. Cat Cotton COVID Quick Testingon 2021 Result Positive [employer] Other Vital Signs Date Time Vital Sign Value Performing Clinician Faci nayelyy 10-10-2023 11:17-0500 Diastolic blood pressure 67 mm[Hg] DO Christopher Kecia Work Phone: [facility] 10-10-2023 11:17-0500 Heart rate 57 /min DO Christopher Kecia Work Phone: [facility] 10-10-2023 11:17-0500 Respiratory rate 16 /min DO Christopher Kecia Work Phone: [facility] 10-10-2023 11:17-0500 SaO2% (BldA) [Mass fraction] 100 % DO Christopher Kecia Work Phone: [facility] 10-10-2023 11:17-0500 Systolic blood pressure 114 mm[Hg] DO Christopher Kecia Work Phone: [facility] 10-10-2023 10:42-0500 Inhaled oxygen flow rate 8 L/min DO [employer] Work Phone: [facility] 10-10-2023 09:53-0500 Body height 157.48 cm DO Christopher Kecia Work Phone: [facility] 10-10-2023 09:53-0500 Body mass index (BMI) [Ratio] 26.2 kg/m2 DO Preet Mcdonnell Work Phone: [facility] 10-10-2023 09:53-0500 Body weight 65 kg DO Preet Mcdonnell Work Phone: [facility] 10-10-2023 08:22-0500 Body temperature 97.9 [degF] DO Preet Mcdonnell Work Phone: [facility] 09-12-2023 08:43-0400 Body height 157.48 cm DO Preet Mcdonnell Work Phone: [facility] 09-12-2023 08:43-0400 Body weight 62.59 kg DO Preet Mcdonnell Work Phone: [facility] 06-09-2022 15:10-0400 Body height 157.48 cm Zenia Wang Other [employer] [facility] [employer] Other 06-09-2022 15:10-0400 Body mass index (BMI) [Ratio] 26.52 kg/m2 Zenia Wang Other [employer] Other 06-09-2022 15:10-0400 Body temperature 97.5 [degF] Zenia Wang Other [employer] Other 06-09-2022 15:10-0400 Body weight 65.77 kg Zenia Kathleen Other [employer] Other 06-09-2022 15:10-0400 Respiratory rate 18 /min Zenia Wang Other [employer] Other 06-09-2022 15:10-0400 SaO2% (BldA) [Mass fraction] 97 % Zenia Wang Other [employer] Other Encounters Encounter Date Encounter Type Care Provider Facility Start: 10-10-2023 End: 10-10-2023 Admission to same day surgery center DO Preet Mcdonnell Work Phone: [facility] [place] Start: 10-10-2023 End: 10-10-2023 ambulatory NON STAFF [facility] Work Phone: Start: 09-21-2023 End: 09-21-2023 ambulatory Preet Mcdonnell Facility:[facility] Start: 09-21-2023 End: 09-21-2023 ambulatory NON STAFF [facility] Work Phone: Start: 09-21-2023 End: 09-21-2023 Patient encounter procedure DO Preet Mcdonnell Work Phone: [facility] Work Phone: Start: 09-12-2023 End: 09-12-2023 ambulatory NON STAFF Facility:[facility] Start: 09-12-2023 End: 09-12-2023 Patient encounter procedure DO Preet Mcdonnell Work Phone: [facility] [place] Work Phone: Start: 02-14-2023 End: 02-15-[address] DOCTOR CUNNINGHAM Facility:[facility] Start: 01-14-2023 End: 01-14-[address] BENNIE KEE . Facility:[facility] Start: 06-09-2022 End: 06-09-2022 ambulatory Zenia Wang Other [employer] Other Start: 06-09-2022 Office outpatient ne w 20 minutes Zenia Wang [facility] Plan of Treatment Date Care Activity Detail Author Start: 10-10-2023 OR CAT/MRI W/ IV SEDATION (Not Applicable) OR CAT/MRI W/ IV SEDATION (Not Applicable) [facility] Start: 10-10-2023 End: 10-10-2023 [facility] Start: 10-10-2023 MR Unspecified body region [facility] Start: 10-10-2023 MRI of head MR head/brain wo/w con [facility] Patient Education MRI Scan Moder ate and Deep Sedation in Adults [facility] Work Phone: [facility] Payers Date Payer Category Payer Medicare [id number] 2023 Self-pay 1961 Unknown [id number] 1960 Unknown [id number] [id number] [id number] 1960 Unknown [id number] 2.16.84 [id number] Unknown [id number] 2.1 [id number] Unknown [id number] 2.16.8 [id number] Unknown [id number] 2.16.8 [id number] Unknown [id number] 2.16.8 [id number] Social History Date Type Detail Facility Sex Assigned At [facility] Other Start: 1960 Sex Assigned At Female F [facility] Start: 10-10-2023 Tobacco smoking stat us WIIS Ex-smoker (finding) [facility] Goals Date Patient Goal Desired Activity [...] regarding further treatment if you are interested. [employer] Other Evaluation note Note Date & Type Note Facility Evaluation note No assessment information availa [facility] Work Phone: History general Narrative - Reported Note Date & Type Note Facility History general Narrative - Reported Type Medical History Hypertension Medical History tremors Medical History acid reflux Medical History skin cancers Surgical History cholecystectomy Hospitalization History see above [facility] Other Summary Purpose Family History No Family [...] DATE CREATED AUTHOR 02/19/2023 [facility] DATE CREATED AUTHOR 'S ORGANIZ ATION 12/23/2023 [facility] Care Teams (unrecognized sec tion and content) [...] BE BASED ON THE PRIMARY CLINICAL RECORDS. [facility]. provides no warranty or guarantee of the accuracy or completeness of information in this document.
[2024-12-09 12:53] VITALS: BP 138/72; PULSE 92; TEMP 36.9; O2SAT 98; BMI 24.9
[2024-12-09] MEDS: IPRATROPIUM/ALBUTEROL SULFATE 3 ML AMPUL.NEB IH (13:43)
[2024-12-09] MEDS: PREDNISONE 20 MG TABLET 40 MG PO (13:44)
[2024-12-09 13:46] VITALS: PULSE 85; O2SAT 97
--- NOTE | 2024-12-09 18:09 | ED.URI1 ---
HPI - URI/Sore Throat General Chief Complaint: Upper Respiratory Infection Stated Complaint: URTI COMPLAINTS Time Seen by Provider: 12/09/24 12:57 Source: patient Limitations: no limitations History of Present Illness HPI Narrative: Patient have history of COPD coming to the ER with a runny nose coughing and producing more sputum for the last few days, that she had something similar almost a month ago but but because she works in a [employer], she think that she get exposed to a lot of sick people Patient have no fever or chills at the moment She does have generalized body ache runny nose and exposure to her son who had similar symptoms Related Data Home Medications ?Medication ?Instructions ?Recorded ?Confirmed benazepril 10 mg tablet 10 mg PO DAILY 07/30/24 12/09/24 omeprazole 10 mg capsule,delayed 10 mg PO DAILY 07/30/24 12/09/24 release calcium PO DAILY 12/09/24 cholecalciferol (vitamin D3) .ROUTE 12/09/24 Previous Rx's ?Medication ?Instructions ?Recorded albuterol sulfate 90 mcg/actuation 1 inh inhalation Q6H PRN shortness 10/31/24 aerosol inhaler of breath or wheezing #8.5 grams doxycycline hyclate 100 mg tablet 100 mg PO BID 7 days #14 tabs 12/09/24 prednisone 20 mg tablet 40 mg (2 x 20 mg) PO DAILY 5 days 12/09/24 #10 tabs Allergies Allergy/AdvReac Type Severity Reaction Status Date / Time bee venom protein (honey bee) Allergy Unknown Verified 12/09/24 12:50 ciprofloxacin Allergy Hives Verified 12/09/24 12:50 Penicillins Allergy Unknown Verified 12/09/24 12:50 pseudoephedrine (From Allergy Anaphylaxis Verified 12/09/24 12:50 Sudafed) Review of Systems ROS Status of ROS 10 or more systems reviewed and unremarkable except as noted in history and below PFS PFS Social History Smoking status: Never smoker Little interest or pleasure in doing things: not at all Feeling down, depressed, or hopeless: not at all Exam Narrative Exam Narrative: Nurses notes and vital signs reviewed and patient is not hypoxic. General: Well-appearing and in no apparent distress. Skin: Warm, dry, no pallor noted. No rash. Head: Normocephalic, atraumatic. Neck: Supple, non-tender. Eye: Pupils are equal, round and EOMI. No scleral icterus. Ears, Nose, Mouth, and Throat: TM are clear, no nasal mucosal hypertrophy. Oral mucosa is moist, no posterior oropharynx erythema, uvula is mid-line Cardiovascular: Regular Rate and Rhythm without murmur, gallop or rub. Respiratory: Decreased air entry in the bases Back: No midline thoracic or lumbar vertebral tenderness. No CVA tenderness Musculoskeletal: normal ROM, no calf or popliteal tenderness, no lower extremity edema/swelling GI: Abdomen is soft, non-distended. Normal bowel sounds. No masses appreciated. No tenderness to palpation. No rebound, guarding, or rigidity noted. Neurological: A&O x4. No cranial nerve dysfunction observed. No truncal ataxia. Moves all extremities. Sensation intact. Psychiatric: Cooperative and interactive. Normal mood and affect. Constitutional Vital Signs, click to edit/add: Last Vital Signs Temp 98.5 F 12/09/24 12:53 Pulse 85 12/09/24 13:46 Resp 20 12/09/24 13:46 BP 138/72 12/09/24 12:53 Pulse Ox 97 12/09/24 13:46 O2 Del Method Room Air 12/09/24 13:46 Course Vital Signs Vital signs: Vital Signs Temperature 98.5 F 12/09/24 12:53 Pulse Rate 92 H 12/09/24 12:53 Respiratory Rate 18 12/09/24 12:53 Blood Pressure 138/72 12/09/24 12:53 Pulse Oximetry 98 12/09/24 12:53 Oxygen Delivery Method Room Air 12/09/24 12:53 Temperature 98.5 F 12/09/24 12:53 Pulse Rate 85 12/09/24 13:46 Respiratory Rate 20 12/09/24 13:46 Blood Pressure 138/72 12/09/24 12:53 Pulse Oximetry 97 12/09/24 13:46 Oxygen Delivery Method Room Air 12/09/24 13:46 MDM - URI/Sore Throat MDM Narrative Medical decision making narrative: The patient presented to us with a COPD exacerbation mostly secondary to viral illness She was started on prednisone and antibiotic The patient is to follow up with primary care physician in next 2-3 days or to return to the emergency department should any of the signs or symptoms worsen or new symptoms develop. The patient agrees with the following Diagnosis and Treatment plan and the patient will be discharged home. Discharge Plan Discharge Chief Complaint: Upper Respiratory Infection Clinical Impression: COPD exacerbation Patient Disposition: Home, Self-Care Time of Disposition Decision: 14:01 Condition: Good Prescriptions / Home Meds: New prednisone 20 mg tablet 40 mg PO DAILY 5 Days Qty: 10 0RF doxycycline hyclate 100 mg tablet 100 mg PO BID 7 Days Qty: 14 0RF No Action benazepril 10 mg tablet 10 mg PO DAILY omeprazole 10 mg capsule,delayed release(DR/EC) 10 mg PO DAILY albuterol sulfate 90 mcg/actuation HFA aerosol inhaler 1 inh inhalation Q6H PRN (Reason: shortness of breath or wheezing) Qty: 8.5 0RF cholecalciferol (vitamin D3) [Baby Vitamin D3] .ROUTE calcium PO DAILY Print Language: Telugu Instructions: Viral Syndrome (ED) Referrals: [facility] [Primary Care Provider] - 1 week Discharge Date/Time: 12/09/24 14:11
== END 2024-12-09 14:11 | disposition home or self-care (01) ==
PROVIDERS: Emergency Provider Emergency Medicine
DX: J44.1 Chronic obstructive pulmonary disease with (acute) exacerbation (principal)
CPT/HCPCS: 94640; 99283; J7512

== ENCOUNTER 2025-03-14 10:37 | Outpatient (OUT) | payer MEDICARE, MEDICAID, SELFPAY ==
--- NOTE | 2025-03-14 10:40 | MM_ITS ---
Patient Name: ZAKI MOORE MR#: [id number] : 1960 Exam Date: 03/14/2025 Ordering Doctor: JERMAINE HEIN RADIOLOGY REPORT PROCEDURE: MM TOMOSYNTHESIS SCREENING BI COMPARISON: MG MAMM SCREEN 3D ROX[place]NE CAD, 02/14/2023. MG MAMM [facility] DIAG W CAD, 06/23/2021. MG MAMM SCREEN ROX[place]NE W CAD, 04/25/2020. MG MAMM SCREEN ROXANNE W CAD, 04/13/2019. INDICATIONS: Screening Calculator Name NCI Breast Cancer Risk Assessment Tool 5 Year Breast Cancer Risk 1.50% Lifetime Breast Cancer Risk 5.40% Personal Breast Cancer No Personal Ovarian Cancer No Treatments None Family Cancers None LOCATION: [facility] BREAST COMPOSITION: There are scattered areas of fibroglandular density. FINDINGS: DIAGNOSTIC CATEGORY 1--NEGATIVE. RIGHT BREAST: No significant suspicious finding. LEFT BREAST: No significant suspicious finding. RECOMMENDATIONS: ROUTINE MAMMOGRAM AND CLINICAL EVALUATION IN 12 MONTHS. PLEASE NOTE: A NORMAL MAMMOGRAM DOES NOT EXCLUDE THE POSSIBILITY OF BREAST CANCER. A CLINICALLY SUSPICIOUS PALPABLE LUMP SHOULD BE BIOPSIED. Dictated by: Fito Salazar DO on 03/14/2025 at 16:13 Approved by: Fito Salazar DO on 03/14/2025 at 16:15
== END 2025-03-14 10:38 | disposition home or self-care (01) ==
LOC: MAMMO 10:37
DX: Z12.31 Encounter for screening mammogram for malignant neoplasm of breast (principal)
CPT/HCPCS: 77063; 77067

== ENCOUNTER 2025-03-29 16:31 | Emergency (ER) | payer MEDICARE, MEDICAID, SELFPAY ==
[2025-03-29 16:37] VITALS: BP 169/84; PULSE 103; TEMP 38.6; O2SAT 99; BMI 24.9
[2025-03-29] MEDS: ACETAMINOPHEN 500 MG TABLET PO (17:06)
--- OUTSIDE RECORDS SUMMARY | 2025-03-29 17:07 | XMS_ITS | CCD ---
Author Organization [facility] Care Team Providers Care Cleaner And Preparer Name Role Phone Zenia Wang Unavailable PAY ., DR AVERY Consulting Unavailable PAY ., DR AVERY Attending Unavailable PAY ., DR AVERY Admitting Unavailable MISC, DR BRAY Primary Care Unavailable MISC, DR BRAY Attending Unavailable MISC, DR BRAY Admitting Unavailable MISC, DR BRAY Primary Care Unavailable MISC, DR BRAY Consulting Unavailable ZIEBER, DR TUAN Jordan Consulting Unavailable DO Preet cMdonnell Attending Provider NON STAFF Primary Care Provider [...] (3 sources) Latex Drug allergy 3 Blisters, [facility] (1 source) Sertraline Drug Allergy hives [facility] [employer] Other (1 source) Bee Sting Drug allergy anaphylaxis [facility] [employer] Other (1 source) bee venom Drug allergy (disorder) [facility] (1 source) Ketanserin Drug Allergy [facility] (1 source) Nystatin Drug Allergy [facility] (1 source) Soy protein Drug allergy (disorder) [facility] (3 sources) Sulfonamides (Antibiotic); Translations: [Sulfa (Sulfonamide Antibiotics)] Allergy to substance 3 Hives [facility] (1 source) Latex Drug allergy (disorder) 3 [facility] (1 source) Sertraline Drug Allergy 2 [facility] (1 source) bee venom protein (honey bee) Drug allergy (disorder) 2 [facility] Medications Current Medications Medication Drug Class(es) [...] D2 Compound Vitamin D (Ergocalciferol) 1.25 MG (72376 UT) Oral for 84 Days Active ibuprofen [...] on 10-10-2023 Amphetamines Ql (U) Negative Negative [facility] Barbiturates [Presence] in U rine by Screen methodOrdered By: Parviz Garcias on 10-10-2023 Barbiturates Screen Ql (U) Negative Negative [facility] Benzodiazepines Screen Ql (U )Ordered By: Parviz Garcias on 10-10-2023 Benzodiazepines Ql (U) Negative Negative [facility] Benzoylecgonine [Presence] i n Urine by Screen methodOrdered By: Parviz Garcias on 10-10-2023 Benzoylecgonine Screen Ql (U) Negative Negative [facility] Cannabinoids [Presence] in U rine by Screen methodOrdered By: Parviz Garcias on 10-10-2023 Cannabinoids Screen Ql (U) Positive Negative [facility] Comment on above: These are unconfirme d results and should not be used for legal purposes. Drug Cut-Off Concentration: AMPH 1000 ng/mL ADAN 200 ng/mL JAME 200 ng/mL COCM 300 ng/mL OP 300 ng/mL PCP 25 ng/mL THC 20 ng/mL Drug Screen,Urineon 10-10-20 Amphetamine Screen,Urine Negative Normal Negative [facility] Comment on above: Performed By: #### U RDS #### [address] Barbiturate Screen,Urine Negative Normal Negative [facility] Comment on above: Performed By: #### U RDS #### [facility] [address] [place] [address] [place] Benzodiazepines Screen,Urine Negative Normal Negative [facility] Comment on above: Performed By: #### U RDS #### [facility] [address] [place] [address] [place] Cannabinoid Screen,Urine Positive High Negative [facility] Comment on above: Result Comment: Thes e are unconfirmed results and should not be used for legal purposes. Drug Cut-Off Concentration: AMPH 1000 ng/mL ADAN 200 ng/mL JAME 200 ng/mL COCM 300 ng/mL OP 300 ng/mL PCP 25 ng/mL THC 20 ng/mL PERFORMED BY: [place] [address] PATHOLOGIST FOLDER OPERATOR DAX MOMIN M.D. Performed By: #### U RDS #### [address] Cocaine Screen,Urine Negative Normal Negative [facility] Comment on above: Performed By: #### U RDS #### [address] Opiate Screen,Urine Negative Normal Negative [facility] Comment on above: Performed By: #### U RDS #### [address] Phencyclidine Screen,Urine Negative Normal Negative [facility] Comment on above: Performed By: #### U RDS #### [address] MR head/brain wo/w conon MR head/brain wo/w con [facility] [place] [address] [place] [address] MRI Report Signed Patient: Caridad Garcia MR#: [id number] 18 : 1960 Acct:[id number] Age/Sex: 63 / F ADM Date: 10/10/23 [facility]: [facility] Room: Type: [facility] Attending Dr: Preet Mcdonnell DO Copies to: [...] Bennie Leahy M.D.10/10/2023 1:10 PM Dictation Location: [place] [address] Transcribed By: [facility] 10/10/23 1310 Dictated By: Bennie Leahy DO 10/10/23 1301 Signed By: 10/10/23 1310 Normal [facility] Opiates [Presence] in Urine by Screen methodOrdered By: Parviz Gracias on 10-10-2023 Opiates Screen Ql (U) Negative Negative [facility] Phencyclidine Screen Ql (U)O rdered By: Parviz Garcias on 10-10-2023 Phencyclidine Ql (U) Negative Negative [facility] Creatinine (Bld) [Mass/Vol]O rdered By: Preet Mcdonnell on 09-12-2023 Creatinine [Mass/Vol] 0.7 mg/dL 0.6-1.3 [facility] Comment on above: ER/ESD physician is notified/shown all ISTAT results.Critical values may be confirmed by laboratory testing ifdeemed necessary by ER attending doctor. MG MAMM SCREEN 3D ROXANNE CADon 02-14-2023 MG MAMM SCREEN 3D ROXANNE CAD Patient: CARIDAD GARCIA Exam Date: 02/14/2023 : 1960 Gender:F Ordering : [facility] Admission #: [id number] Family : Order #: [id number] CLICK HERE TO VIEW EXAM RADIOLOGY REPORT [...] Family Cancers None LOCATION: [facility] BREAST COMPOSITION: Heterogeneously dense,which may obscure [...] 02/15/2023 at 08:18 Normal [facility] CBC AUTO DIFFon 01-14-2023 BASO # 0.1 103/ul Normal 0.0-0.1 [facility] Comment on above: Performed By: #### C BC #### [facility] [address] [place] [address] Dr. Cat Cotton Basophils/100 WBC (Bld) 0.7 % Normal 0.2-2.0 [facility] Comment on above: Performed By: #### C BC #### [facility] [address] [place] [address] Dr. Cat Cotton EO # 0.2 103/ul Normal 0.0-0.7 [facility] Comment on above: Performed By: #### C BC #### [facility] [address] [place] [address] Dr. Cat Cotton Eosinophils/100 WBC (Bld) 2.4 % Normal 0.9-7.0 [facility] Comment on above: Performed By: #### C BC #### [facility] [address] [place] [address] Dr. Cat Cotton Erythrocyte distribution width (RBC) [Ratio] 13.3 % Normal 11.0-15.0 [facility] Comment on above: Performed By: #### C BC #### [facility] [address] [place] [address] Dr. Cat Cotton Hematocrit (Bld) [Volume fraction] 40.1 % Normal 36.0-48.0 [facility] Comment on above: Performed By: #### C BC #### [facility] [address] [place] [address] Dr. Cat Cotton Hemoglobin (Bld) [Mass/Vol] 13.8 g/dL Normal 12.0-16.0 [facility] Comment on above: Performed By: #### C BC #### [facility] [address] [place] [address] Dr. Cat Cotton IG # 0.02 10e3/ul Normal 0.00-0.03 [facility] Comment on above: Performed By: #### C BC #### [facility] [address] [place] [address] Dr. Cat Cotton IG % 0.2 % Normal 0.0-0.5 [facility] Comment on above: Performed By: #### C BC #### [facility] [address] [place] [address] Dr. Cat Cotton LYMPH # 2.3 103/ul Normal 1.2-3.8 [facility] Comment on above: Performed By: #### C BC #### [facility] [address] [place] [address] Dr. Cat Cotton Lymphocytes/100 WBC (Bld) 28.9 % Normal 20.5-60.0 [facility] Comment on above: Performed By: #### C BC #### [facility] [address] [place] [address] Dr. Cat Cotton MANUAL DIFF REQ NO Normal [facility] Comment on above: Performed By: #### C BC #### [facility] [address] [place] [address] Dr. Cat Cotton MCH (RBC) [Entitic mass] 29.8 pg Normal 26.7-34.0 [facility] Comment on above: Performed By: #### C BC #### [facility] [address] [place] [address] Dr. Cat Cotton MCHC (RBC) [Mass/Vol] 34.4 g/dL Normal 29.9-35.2 [facility] Comment on above: Performed By: #### C BC #### [facility] [address] [place] [address] Dr. Cat Cotton MCV (RBC) [Entitic vol] 86.6 fL Normal 81.0-99.0 [facility] Comment on above: Performed By: #### C BC #### [facility] [address] [place] [address] Dr. Cat Cotton MONO # 0.6 103/ul Normal 0.3-0.8 [facility] Comment on above: Performed By: #### C BC #### [facility] [address] [place] [address] Dr. Cat Cotton Monocytes/100 WBC (Bld) 7.9 % Normal 1.7-12.0 [facility] Comment on above: Performed By: #### C BC #### [facility] [address] [place] [address] Dr. Cat Cotton NEUT # 4.8 103/ul Normal 1.4-6.5 [facility] Comment on above: Performed By: #### C BC #### [facility] [address] [place] [address] Dr. Cat Cotton Neutrophils/100 WBC (Bld) 59.9 % Normal 43.0-75.0 [facility] Comment on above: Performed By: #### C BC #### [facility] [address] [place] [address] Dr. Cat Cotton Platelet mean volume (Bld) [Entitic vol] 9.2 fL Critically low 9.5-13.5 [facility] Comment on above: Performed By: #### C BC #### [facility] [address] [place] [address] Dr. Cat Cotton PLT 229 103/ul Normal 150-450 [facility] Comment on above: Performed By: #### C BC #### [facility] [address] [place] [address] Dr. Cat Cotton RBC 4.63 106/ul Normal 4.20-5.40 [facility] Comment on above: Performed By: #### C BC #### [facility] [address] [place] [address] Dr. Cat Cotton WBC 8.0 103/ul Normal 4.0-11.0 [facility] Comment on above: Performed By: #### C BC #### [facility] [address] [place] [address] Dr. Cat Cotton Covid-19 PCR (CVDTB)on SARS-CoV-2 (COVID-19) RNA KRYSTA+probe Ql (Unsp spec) Not detected Normal NOT DETECTED [facility] Comment on above: Result Comment: When [...] for this test is supported by the [place] of Health and Human Service's declaration that [...] By: #### C VDTB #### [facility] [address] [place] [address] Dr. Cat Cotton INFLUENZA A AND B AGon 01-[facility] BELOW Normal [facility] Comment on above: Result Comment: Nega tive for Flu A protein angiten. Infection due to Flu A cannot be ruled out. Flu A angiten in the sample may be below the detection limit of the test. Performed By: #### I NFLUAB #### [facility] [address] [place] [address] Dr. Cat Cotton INFLUBNEG SEE BELOW Normal [facility] Comment on above: Result Comment: Nega tive for Flu B protein antigen. Infection due to Flu B cannot be ruled out. Flu B antigen in the sample may be below the detection limit of the test. Performed By: #### I NFLUAB #### [facility] [address] [place] [address] Dr. Cat Cotton INFLUENZA A AG Negative Normal NEGATIVE SEE COMMENT [facility] Comment on above: Performed By: #### I NFLUAB #### [facility] [address] [place] [address] Dr. Cat Cotton INFLUENZA B AG Negative Normal NEGATIVE SEE COMMENT [facility] Comment on above: Performed By: #### I NFLUAB #### [facility] [address] [place] [address] Dr. Cat Cotton LIPASEon 01-14-2023 Lipase [Catalytic activity/Vol] 144.0 U/L Normal 73.0-393.0 [facility] Comment on above: Performed By: #### B MP, HSTROPN, LIPA #### [facility] [address] [place] [address] Dr. Cat Cotton PROF CHEM 8 (BAS METB)on Anion gap [Moles/Vol] 12.1 mmol/L Normal [facility] Comment on above: Performed By: #### B MP, HSTROPN, LIPA #### [facility] [address] [place] [address] Dr. Cat Cotton Calcium [Mass/Vol] 9.2 mg/dL Normal 8.5-10.1 [facility] Comment on above: Performed By: #### B MP, HSTROPN, LIPA #### [facility] [address] [place] [address] Dr. Cat Cotton Chloride [Moles/Vol] 103 mmol/L Normal 98-107 [facility] Comment on above: Performed By: #### B MP, HSTROPN, LIPA #### [facility] [address] [place] [address] Dr. Cat Cotton CO2 [Moles/Vol] 28.3 mmol/L Normal 21.0-32.0 [facility] Comment on above: Performed By: #### B MP, HSTROPN, LIPA #### [facility] [address] [place], [place] [address] Dr. Cat Cotton Creatinine [Mass/Vol] 0.70 mg/dL Normal 0.55-1.02 [facility] Comment on above: Performed By: #### B MP, HSTROPN, LIPA #### [facility] [address] [address] [address] Cat Cotton EGFR-AF TURKISH >60 Normal >=60 [facility] Comment on above: Performed By: #### B MP, HSTROPN, LIPA #### [facility] [address] [place] [address] [address] Cat Cotton EGFR-NON AF TURKISH >60 Normal >=60 [facility] Comment on above: Performed By: #### B MP, HSTROPN, LIPA #### [facility] [address] [place] [address] [address] Cat Cotton Glucose [Mass/Vol] 91 mg/dL Normal 74-106 [facility] Comment on above: Performed By: #### B MP, HSTROPN, LIPA #### [facility] [address] [place] [address] [address] Cat Cotton Potassium [Moles/Vol] 3.4 mmol/L Critically low 3.5-5.1 [facility] Comment on above: Performed By: #### B MP, HSTROPN, LIPA #### [facility] [address] [place] [address] [address] Cat Cotton Sodium [Moles/Vol] 140 mmol/L Normal 136-145 [facility] Comment on above: Performed By: #### B MP, HSTROPN, LIPA #### [facility] [address] [place] [address] [address] Cat Cotton Urea nitrogen [Mass/Vol] 8.0 mg/dL Normal 7.0-18.0 [facility] Comment on above: Performed By: #### B MP, HSTROPN, LIPA #### [facility] [address] [place] [address] [address] Cat Cotton Urea nitrogen/Creatinine [Mass ratio] 11.4 mg/mg Normal [facility] Comment on above: Performed By: #### B MP, HSTROPN, LIPA #### [facility] [address] [place], [place] [address] Dr. Cat Cotton TROPONIN, HIGH SENSITIVITYon 01-14-2023 HSTROP <4.0 Normal 4.0-51.3 [facility] Comment on above: Result Comment: CUT- OFF POINTS HAVE BEEN ESTABLISHED BASED ON THE FOURTH UNIVERSAL DEFINITIONS OF MYOCARDIAL INFARCTION. THE UPPER REFERENCE LIMIT (URL) OF TROPONIN, DEFINED THE 99TH PERCENTILE OF cTnI DISTRIBUTION IN A REFERENCE POPULATION, HAS BEEN CONFIRMED THE DECISION THRESHOLD FOR GA DIAGNOSIS. Performed By: #### B MP, HSTROPN, LIPA #### [facility] [address] [place], [place] [address] Dr. Cat Cotton COVID Quick Testingon 2021 Result Positive [employer] Other Vital Signs Date Time Vital Sign Value Performing Clinician Faci nayelyy 10-10-2023 11:17-0500 Diastolic blood pressure 67 mm[Hg] DO Christopher Kecia Work Phone: [facility] 10-10-2023 11:17-0500 Heart rate 57 /min DO Christopher Kecia Work Phone: [facility] 10-10-2023 11:17-0500 Respiratory rate 16 /min DO Christopher Kecia Work Phone: [facility] 10-10-2023 11:17-0500 SaO2% (BldA) [Mass fraction] 100 % DO Christopher Kecia Work Phone: [facility] 10-10-2023 11:17-0500 Systolic blood pressure 114 mm[Hg] DO Christopher Kecia Work Phone: [facility] 10-10-2023 10:42-0500 Inhaled oxygen flow rate 8 L/min DO Heekyaopher [employer] Work Phone: [facility] 10-10-2023 09:53-0500 Body height 157.48 cm DO Christopher Kecia Work Phone: [facility] 10-10-2023 09:53-0500 Body mass index (BMI) [Ratio] 26.2 kg/m2 DO Preet Mcdonnell Work Phone: [facility] 10-10-2023 09:53-0500 Body weight 65 kg DO Preet Mcdonnell Work Phone: [facility] 10-10-2023 08:22-0500 Body temperature 97.9 [degF] DO Preet Mcdonnell Work Phone: [facility] 09-12-2023 08:43-0400 Body height 157.48 cm DO Preet Mcdonnell Work Phone: [facility] 09-12-2023 08:43-0400 Body weight 62.59 kg DO Preet Mcdonnell Work Phone: [facility] 06-09-2022 15:10-0400 Body height 157.48 cm Zenia Wang Other [employer] [facility] [employer] Other 06-09-2022 15:10-0400 Body mass index (BMI) [Ratio] 26.52 kg/m2 Zenia Wang Other [employer] Other 06-09-2022 15:10-0400 Body temperature 97.5 [degF] Zenia Wang Other [employer] Other 06-09-2022 15:10-0400 Body weight 65.77 kg Zenia Kathleen Other [employer] Other 06-09-2022 15:10-0400 Respiratory rate 18 /min Zenia Wang Other [employer] Other 06-09-2022 15:10-0400 SaO2% (BldA) [Mass fraction] 97 % Zenia Wang Other [employer] Other Encounters Encounter Date Encounter Type Care Provider Facility Start: 10-10-2023 End: 10-10-2023 Admission to same day surgery center DO Preet Mcdonnell Work Phone: [facility] [place] Start: 10-10-2023 End: 10-10-2023 ambulatory NON STAFF [facility] Work Phone: Start: 09-21-2023 End: 09-21-2023 ambulatory Preet Mcdonnell Facility:[facility] Start: 09-21-2023 End: 09-21-2023 ambulatory NON STAFF [facility] Work Phone: Start: 09-21-2023 End: 09-21-2023 Patient encounter procedure DO Preet Mcdonnell Work Phone: [facility] Work Phone: Start: 09-12-2023 End: 09-12-2023 ambulatory NON STAFF Facility:[facility] Start: 09-12-2023 End: 09-12-2023 Patient encounter procedure DO Preet Mcdonnell Work Phone: [facility] [place] Work Phone: Start: 02-14-2023 End: 02-15-[address] DOCTOR CUNNINGHAM Facility:[facility] Start: 01-14-2023 End: 01-14-[address] BENNIE KEE . Facility:[facility] Start: 06-09-2022 End: 06-09-2022 ambulatory Zenia Wang Other [employer] Other Start: 06-09-2022 Office outpatient ne w 20 minutes Zenia Wang [facility] Plan of Treatment Date Care Activity Detail Author Start: 10-10-2023 OR CAT/MRI W/ IV SEDATION (Not Applicable) OR CAT/MRI W/ IV SEDATION (Not Applicable) [facility] Start: 10-10-2023 End: 10-10-2023 [facility] Start: 10-10-2023 MR Unspecified body region [facility] Start: 10-10-2023 MRI of head MR head/brain wo/w con [facility] Patient Education MRI Scan Moder ate and Deep Sedation in Adults [facility] Work Phone: [facility] Payers Date Payer Category Payer Medicare [id number] 191 [id number] 2023 Self-pay 1961 Unknown [id number] 1960 Unknown [id number] [id number] [id number] 1960 Unknown [id number] 2.16.84 [id number] Unknown [id number] 2.1 [id number] Unknown [id number] 2.16.8 [id number] Unknown [id number] 2.16.8 [id number] Unknown [id number] 2.16.8 [id number] Social History Date Type Detail Facility Sex Assigned At [employer] Other Start: 1960 Sex Assigned At Female [facility] Start: 10-10-2023 Tobacco smoking stat us ALIS Ex-smoker (finding) [facility] Goals Date Patient Goal Desired Activity /State [...] regarding further treatment if you are interested. [employer] Other Evaluation note Note Date & Type Note Facility Evaluation note No assessment information availa [facility] Work Phone: History general Narrative - Reported Note Date & Type Note Facility History general Narrative - Reported Type Medical History Hypertension Medical History tremors Medical History acid reflux Medical History skin cancers Surgical History cholecystectomy Hospitalization History see above [employer] Other Summary Purpose Family History No Family [...] DATE CREATED AUTHOR 02/19/2023 [facility] DATE CREATED AUTHOR 'S ORGANIZ ATION 12/23/2023 [facility] Care Teams (unrecognized sec tion and [...] BE BASED ON THE PRIMARY CLINICAL RECORDS. [facility] [employer] [facility]. provides no warranty or guarantee of the accuracy or completeness of information in this document.
--- NOTE | 2025-03-29 17:23 | ED.GENADUL1 ---
HPI HPI - General Adult General Chief complaint: Upper Respiratory Infection Stated complaint: SNIFFLES COUGH CHEST CONGESTION Time Seen by Provider: 03/29/25 16:38 Source: patient Mode of arrival: walk-in Limitations: no limitations History of Present Illness HPI narrative: Patient is a 64-year-old female who is presenting to the ER today with chief complaint flulike symptoms since Tuesday. Patient has been having sinus headache, congestion, sore throat, ear pain, and sinus pressure since Tuesday. Patient has been taking dtrq-pnl-gwvfbnp department clinician product that helps with congestion and asked like an antibiotic, a herbal supplement. Patient has been using her albuterol inhaler at home. She has albuterol inhaler and nebulizer at home. Patient states that she does have emphysema and uses inhalers at home. Patient has no chest pain or shortness of breath. No abdominal pain nausea or vomiting. No acute complaints. Patient is here because her symptoms are continuing and did not go ongoing for 4 days. All systems are negative except as noted/marked. All systems reviewed and otherwise negative. Nurses note and vital signs reviewed and patient is not hypoxic. General: The patient appears well and in no apparent distress. Patient is resting comfortably on cart. Patient is not toxic, lethargic, or listless patient has generalized mild tremor., Baseline. Skin: Warm, dry, no pallor noted. There is no rash noted. No petechiae, purpura. Head: Normocephalic, atraumatic, mild tenderness to palpation to bilateral frontal and maxillary sinus. Eye: Normal conjunctiva, no drainage, EOMI. PERRL Ears, Nose, Mouth, and Throat: oral mucosa is moist. Nares patent. Mouth without vesicles. Patient has no unilateral swelling, no obvious signs of peritonsillar abscess, no posterior pharyngeal petechiae or exudate. Airways patent. Patient tolerating secretions well. No trismus. Patient has clear drainage noted to the posterior pharynx. Patient has mild cobblestoning to the posterior pharynx. No bilateral anterior or posterior cervical lymphadenopathy. Cardiovascular: Regular Rate and Rhythm, no murmur, gallop, rub Respiratory: Patient is in no distress, no accessory muscle use, lungs are clear to auscultation, no wheezing, rales or rhonchi Back: non-tender, no CVA tenderness bilaterally to percussion. No CT LS midline pain GI: no tenderness to palpation, no masses appreciated. No rebound, guarding, or rigidity noted. No distention Musculoskeletal: Patient has full range of motion of all of the extremities, no motor, sensory, or focal neurological deficits Neurological: A&O x4, normal speech Psychiatric: Cooperative Related Data Home Medications ?Medication ?Instructions ?Recorded ?Confirmed benazepril 10 mg tablet 10 mg PO DAILY 07/30/24 03/29/25 omeprazole 10 mg capsule,delayed 10 mg PO DAILY 07/30/24 03/29/25 release calcium PO DAILY 12/09/24 cholecalciferol (vitamin D3) .Route 12/09/24 Previous Rx's ?Medication ?Instructions ?Recorded albuterol sulfate 90 mcg/actuation 1 inh inhalation Q6H PRN shortness 10/31/24 aerosol inhaler of breath or wheezing #8.5 grams doxycycline hyclate 100 mg tablet 100 mg PO BID 7 days #14 tabs 12/09/24 prednisone 20 mg tablet 40 mg (2 x 20 mg) PO DAILY 5 days 12/09/24 #10 tabs cvwifbdvrcgziqi-kphnpjftltlgqgo-PO 10 ml PO Q6H PRN cold symptoms 03/29/25 2 mg-30 mg-10 mg/5 mL oral syrup #200 mL (Bromfed DM) prednisone 20 mg tablet 20 mg PO BID 3 days #6 tabs 03/29/25 Allergies Allergy/AdvReac Type Severity Reaction Status Date / Time bee venom protein (honey bee) Allergy Unknown Verified 03/29/25 16:41 ciprofloxacin Allergy Hives Verified 03/29/25 16:41 Penicillins Allergy Unknown Verified 03/29/25 16:41 pseudoephedrine (From Allergy Anaphylaxis Verified 03/29/25 16:41 Sudafed) Opioid HPI Opioid Management Most Recent Opioid Data: Last Pain Scale 8 Today, 17:06 Last MAR Pain Assessment Today, 17:06 PFSH PFS Social History Smoking status: Never smoker Little interest or pleasure in doing things: not at all Feeling down, depressed, or hopeless: not at all Exam Constitutional Vital Signs, click to edit/add: Last Vital Signs Temp 100.1 F 03/29/25 17:30 Pulse 99 H 03/29/25 17:30 Resp 16 03/29/25 17:30 BP 155/84 H 03/29/25 17:30 Pulse Ox 99 03/29/25 17:30 O2 Del Method Room Air 03/29/25 17:30 Course Vital Signs Vital signs: Vital Signs Temperature 101.4 F H 03/29/25 16:37 Pulse Rate 103 H 03/29/25 16:37 Respiratory Rate 16 03/29/25 16:37 Blood Pressure 169/84 H 03/29/25 16:37 Pulse Oximetry 99 03/29/25 16:37 Oxygen Delivery Method Room Air 03/29/25 16:37 Temperature 100.1 F 03/29/25 17:30 Pulse Rate 99 H 03/29/25 17:30 Respiratory Rate 16 03/29/25 17:30 Blood Pressure 155/84 H 03/29/25 17:30 Pulse Oximetry 99 03/29/25 17:30 Oxygen Delivery Method Room Air 03/29/25 17:30 Medical Decision Making MDM Narrative Medical decision making narrative: Patient seen and examined: Education was done at bedside Shared decision making: I discussed with the patient the necessary laboratory findings and radiological findings. Social barriers to healthcare: There are no food insecurities, there is no issue with transportation, there are no insurance barriers. Disposition: I discussed with the patient treatment of her symptoms [id number]. Patient understands multiple medications [id number]-[id number] to help treat her symptoms along with her herbal product that she is using that I am not aware of. Patient was told to do this every day and if she/symptoms next week at the end of the week, she may follow-up with her PCP and maybe a antibiotic is indicated. Patient's symptoms started on Tuesday, March 25. Patient understands, no question at discharge. Chief concern patient did not go to work today, she told me that I did not go to work today, I am not going to work tomorrow, I need a work note for today and tomorrow Patient was given a note stating what time she was here today in the ER. Discharge Plan Discharge Stand Alone Forms: Work/School Release Chief Complaint: Upper Respiratory Infection Clinical Impression: URI (upper respiratory infection), Sinus congestion, Bronchitis Patient Disposition: Home, Self-Care Condition: Fair Prescriptions / Home Meds: New prednisone 20 mg tablet 20 mg PO BID 3 Days Qty: 6 0RF mnnrzsxcxafxxhs-jyfetclko-RW [Bromfed DM] 2-30-10 mg/5 mL syrup 10 ml PO Q6H PRN (Reason: cold symptoms) Qty: 200 0RF No Action benazepril 10 mg tablet 10 mg PO DAILY omeprazole 10 mg capsule,delayed release(DR/EC) 10 mg PO DAILY albuterol sulfate 90 mcg/actuation HFA aerosol inhaler 1 inh inhalation Q6H PRN (Reason: shortness of breath or wheezing) Qty: 8.5 0RF cholecalciferol (vitamin D3) [Baby Vitamin D3] .Route calcium PO DAILY prednisone 20 mg tablet 40 mg PO DAILY 5 Days Qty: 10 0RF doxycycline hyclate 100 mg tablet 100 mg PO BID 7 Days Qty: 14 0RF Print Language: Eritrean Instructions: How to Use a Metered-Dose Inhaler (ED), Upper Respiratory Infection (ED), Acute Bronchitis (ED), Cold Symptoms (ED), How to Use Nasal Slick (ED) Additional Instructions: Do the below treatment every day for the next 7 days. If you are not improved, you may need antibiotic if symptoms continue past 7 to 10 days. Follow-up with PCP Increase fluids at home, Gatorade, Powerade, or water. Alternate using DayQuil, NyQuil, and Flonase. Add Mucinex as well as needed. Alternate Tylenol and Motrin every 4 hours to help with fever control, body aches or joint pain. Use pbil-lne-njpnats vitamin C, vitamin D3, and zinc to help fight infection and help with her immune system. Referrals: [facility] [Primary Care Provider, Unknown] - 1 week Discharge Date/Time: 03/29/25 17:31
[2025-03-29 17:30] VITALS: BP 155/84; PULSE 99; TEMP 37.8; O2SAT 99
== END 2025-03-29 17:31 | disposition home or self-care (01) ==
PROVIDERS: Emergency Provider Emergency Medicine
DX: J06.9 Acute upper respiratory infection, unspecified (principal); R09.81 Nasal congestion; J43.9 Emphysema, unspecified; R50.9 Fever, unspecified
CPT/HCPCS: 99282